=== PATIENT | female | born 1940 | race Caucasian/White ===

== ENCOUNTER 2016-09-07 13:17 | Inpatient (IN) | payer MEDICARE ==
[~2016-09-07 13:17] MED LIST: SODIUM CHLORIDE 0.9% (PF) 10 ML VIAL ONE; niCARdipine 25 MG/10 ML VIAL ONE
[2016-09-07] MEDS ORDERED: methylPREDNISolone SOD SUCCI 125 MG/2 ML VIAL IV STA (13:28)
[2016-09-07] MEDS ORDERED: diphenhydrAMINE 50 MG/ML 1 ML VIAL IVP STA (13:28)
[2016-09-07] MEDS ORDERED: ATORVASTATIN 80 MG TAB PO STA (13:28)
[2016-09-07] MEDS ORDERED: SODIUM CHLORIDE 0.9% 250 ML BAG ONE (13:30)
[2016-09-07] MEDS ORDERED: NOREPINEPHRINE 1 MG/ML 4 ML VIAL IV ONE (13:30)
[2016-09-07 13:34] LABS: CHCM 34.1; HCT 38.5 % (34.0-46.0); HDW 2.28; HGB 13.7 gm/dL (11.4-16.0); MCH 32.6 pg (25.0-35.0); MCHC 35.7 g/dL (31.0-37.0); MCV 91.3 fL (80.0-100.0); RBC 4.21 m/uL (3.80-5.40); RDW 12.4 % (11.5-15.5); WBC 14.6 k/uL (3.8-10.6)
--- NOTE | 2016-09-07 13:34 | ED ---
Arrhythmia/Palpitations HPI - General Chief Complaint: Arrhythmia/Palpitations Stated Complaint: Chest Pain Time Seen by Provider: 09/07/16 13:17 Source: patient, EMS Mode of arrival: EMS Limitations: no limitations - History of Present Illness Initial Comments: This is a 75-year-old female with no prior history of heart disease she is a long-time smoker she does also have a history apparently of retroperitoneal fibrosis who had the onset around 12 noon today of retrosternal chest pain it was 8/10 severity. She states it was severe heaviness tightness. She has some shortness of breath with it. EMS was called and a 12-lead EKG was performed showing ST elevation in leads II, III, and F aVF also on the lateral leads. The patient was brought in [facility] [address] elevation myocardial infarction. Cardiology was notified prior to the patient's arrival I did discuss case with Dr. TIAN Cordon as well as Dr. Whitfield and's service. Patient was initially seen in the emergency department and prepped for the [facility]. Initial twelve-lead was transmitted at 12:53 PM initially EMS call was that 1303 p.m. I did discuss the case with Dr. Cordon [place] [address] Aaron was contacted by cardiology at 1314 and will be performing a cath. Upon arrival a STEMI alert was called and [facility] personnel did respond to. Patient's pain originally was 8/10 severity at times she [facility] emergency department and was about a 5/10. SHe was given aspirin via paramedics she also apparently to gas from prior to this. - Related Data Home Medications Medication Instructions Recorded Confirmed Cholecalciferol [Vitamin D3] 1,000 unit PO DAILY 10/14/15 10/21/15 Citalopram Hydrobromide [CeleXA] 20 mg PO HS 10/14/15 10/21/15 Digoxin [Lanoxin] 125 mcg PO DAILY 10/14/15 10/21/15 Fenofibrate,Micronized 134 mg PO DAILY 10/14/15 10/21/15 [Fenofibrate] L. Rhamnosus GG/Inulin [Culturelle 1 tab PO DAILY 10/14/15 10/21/15 Chewable Tablet] Ascorbic Acid [Vitamin C] 500 mg PO DAILY 10/21/15 10/21/15 Baclofen [Lioresal] 10 mg PO QID 10/21/15 10/21/15 traMADol HCL [Ultram] 50 mg PO BID 10/21/15 10/21/15 Previous Rx's Medication Instructions Recorded Levofloxacin [Levaquin] 250 mg PO DAILY #7 tab 10/23/15 Allergies Allergy/AdvReac Type Severity Reaction Status Date / Time Iodinated Contrast Media - Allergy Itching Verified 09/07/16 13:27 Oral and naproxen Allergy Rash/Hives/Tongue Verified 09/07/16 13:27 Swelling naproxen sodium [From Aleve] Allergy Rash/Hives/Tongue Verified 09/07/16 13:27 Swelling Review of Systems ROS Statement: Those systems with pertinent positive or pertinent negative responses have been documented in the HPI. ROS Other: All systems not noted in ROS Statement are negative. Past Medical History Past Medical History: Hyperlipidemia, Hypertension Additional Past Medical History / Comment(s): C. diff, anxiety, depression, nicotine dependence, tachycardic arrhythmia History of Any Multi-Drug Resistant Organisms: C-DIFF Date of last positivie culture/infection: 2006 MDRO Source:: stool Past Surgical History: Appendectomy, Back Surgery, Breast Surgery, Hysterectomy , Orthopedic Surgery Additional Past Surgical History / Comment(s): retropertoineal fibrosis Past Psychological History: Anxiety, Depression Smoking Status: Current every day smoker Past Alcohol Use History: None Reported Past Drug Use History: None Reported General Exam - General Exam Comments Initial Comments: This is a well-developed well-nourished awake alert oriented 3 female Limitations: no limitations General appearance: alert, anxious Head exam: Present: atraumatic, normocephalic, normal inspection Eye exam: Present: normal appearance, PERRL, EOMI. Absent: scleral icterus, conjunctival injection, periorbital swelling ENT exam: Present: normal exam, mucous membranes moist Neck exam: Present: normal inspection. Absent: tenderness, meningismus, lymphadenopathy Respiratory exam: Present: normal lung sounds bilaterally. Absent: respiratory distress, wheezes, rales, rhonchi, stridor Cardiovascular Exam: Present: regular rate, normal rhythm, normal heart sounds. Absent: systolic murmur, diastolic murmur, rubs, gallop, clicks GI/Abdominal exam: Present: soft, normal bowel sounds. Absent: distended, tenderness, guarding, rebound, rigid Extremities exam: Present: normal inspection, full ROM, normal capillary refill. Absent: tenderness, pedal edema, joint swelling, calf tenderness Back exam: Present: normal inspection Neurological exam: Present: alert, oriented X3, CN II-XII intact Psychiatric exam: Present: normal affect, normal mood Skin exam: Present: warm, dry, intact, normal color. Absent: rash Course Vital Signs 09/07/16 13:19 Temperature 97.1 F L Pulse Rate 77 Respiratory 18 Rate Blood Pressure 168/65 O2 Sat by Pulse 96 Oximetry EKG Findings - EKG Results: EKG: interpreted by ERMD, sinus rhythm (EKG shows a sinus bradycardia with ST elevations in leads II, III, and F aVF reciprocal aVL depression was also elevation in V5 V6. The rate was 57 appear of 01 40 QRS 90 QT/QTC of 412/401.) Medical Decision Making - Medical Decision Making The patient was prepped and taken to the [facility]. I did again discuss case with Dr. Whitfield. Dr. Clark from cardiology to come the emergency department see the patient. - Radiology Data Radiology results: report reviewed (Imaging shows no definite acute findings.), image reviewed Critical Care Time Critical Care Time: Yes Critical Care Time: 34 minutes of critical care time which includes the initial monitoring of the EMS run and discussed with paramedics review of any charting that was available. Discussion with cardiology discussion with the admitting service discussion with The personnel. History physical and reevaluation the patient response to therapy while in the department. Documentation of the above. Disposition Clinical Impression: Acute ST elevation myocardial infarction Disposition: ADMITTED IP TO THIS HOSP Condition: Serious Referrals: Rosario Loza MD [Primary Care Provider] - 1-2 days
[2016-09-07 13:48] LABS: ALT 24 U/L (9-52); AST 20 U/L (14-36); Alkaline Phosphatase 46 U/L (38-126); Anion Gap 10 mmol/L; Blood Urea Nitrogen 20 mg/dL (7-17); Calcium 9.7 mg/dL (8.4-10.2); Carbon Dioxide 20 mmol/L (22-30); Chloride 111 mmol/L (98-107); Glucose 112 mg/dL (74-99); Non-African American GFR(MDRD) >60 (>60 ml/min/1.73 sqM); Potassium 4.1 mmol/L (3.5-5.1); Sodium 141 mmol/L (137-145); Total Bilirubin 0.6 mg/dL (0.2-1.3); Total Protein 6.6 g/dL (6.3-8.2)
[2016-09-07 13:55] LABS: INR 1.1 (<1.1); Partial Thromboplastin Time 21.9 sec (22.0-30.0); Prothrombin Time 11.3 sec (9.0-12.0)
--- NOTE | 2016-09-07 14:03 | XR ---
EXAMINATION TYPE: XR chest 1V portable DATE OF EXAM: 09/07/2016 CLINICAL HISTORY: Chest pain per order TECHNIQUE: Single AP portable upright view of the chest is obtained. COMPARISON: Chest x-ray October 22, 2015 and CTA chest October 21, 2015. FINDINGS: Surgical changes in the cervical spine are visualized. Cardiac silhouette size is [place] its of normal. There is no suspicious focal airspace opacity, pleural effusion, or pneumothorax seen bilaterally. There is slightly atherosclerotic and ectatic aorta. Chronic parenchymal changes are pre sent. Osseous structures are demineralized. IMPRESSION: Chronic changes without acute pulmonary process identified.
[2016-09-07 14:20] LABS: Creatine Kinase MB 1.2 ng/mL (0.0-2.4)
[2016-09-07] MEDS ORDERED: CLOPIDOGREL 75 MG TAB ONE (14:20)
[2016-09-07 14:25] LABS: Troponin I 0.098 ng/mL (0.000-0.034)
[2016-09-07] MEDS ORDERED: RX INFO: IV CONTRAST WAS GIVEN 1 EACH MISC MISCELLANE PRN (14:32)
[2016-09-07] MEDS ORDERED: MAG HYDROX/AL HYDROX/SIMETH 30 ML CUP PO PRN (14:32)
[2016-09-07] MEDS ORDERED: ATROPINE SULFATE 0.1 MG/ML 10ML SYRINGE IV PRN (14:32)
[2016-09-07] MEDS ORDERED: diphenhydrAMINE 50 MG/ML 1 ML VIAL ONE (14:34)
[2016-09-07] MEDS ORDERED: SODIUM CHLORIDE 0.9% 1,000 ML IV SCH (14:45)
--- NOTE | 2016-09-07 14:57 | P.CRDCN ---
History of Present Illness Consult date: 09/07/16 Requesting physician: Rosario Loza Reason for Consult (text): Inferior lateral STEMI Chief complaint: Chest pain History of present illness: This is a pleasant 75-year-old female with history of hyperlipidemia, nicotine dependence, who presented to the emergency room with symptoms of chest discomfort. EKG revealed a normal sinus rhythm with inferior lateral ST elevation. Subsequent EKG performed in the emergency room again showed normal sinus rhythm with significant ST elevation in the inferior lateral leads. The patient was given aspirin on arrival. She continued to have pain at about an 8 , one sublingual nitroglycerin was given and patient became hypotensive. Patient was seen and examined, educated regarding the importance of proceeding with emergent cardiac catheterization. The risks and the benefits were explained to the patient in detail and she was willing to proceed. Patient was given a stat Lipitor, she was also given Solu-Medrol and one dose of Benadryl because of ALLERGY to IVP dye. She was taken directly to the cardiac catheterization lab. Past Medical History Past Medical History: Hyperlipidemia, Hypertension Additional Past Medical History / Comment(s): C. diff, anxiety, depression, nicotine dependence, tachycardic arrhythmia History of Any Multi-Drug Resistant Organisms: C-DIFF Date of last positivie culture/infection: 2006 MDRO Source:: stool Past Surgical History: Appendectomy, Back Surgery, Breast Surgery, Hysterectomy , Orthopedic Surgery Additional Past Surgical History / Comment(s): retropertoineal fibrosis Past Psychological History: Anxiety, Depression Smoking Status: Current every day smoker Past Alcohol Use History: None Reported Past Drug Use History: None Reported Medications and Allergies Home Medications Medication Instructions Recorded Confirmed Type Cholecalciferol [Vitamin D3] 1,000 unit PO DAILY 10/14/15 09/07/16 History Citalopram Hydrobromide [CeleXA] 20 mg PO HS 10/14/15 09/07/16 History Ascorbic Acid [Vitamin C] 500 mg PO DAILY 10/21/15 09/07/16 History traMADol HCL [Ultram] 50 mg PO BID 10/21/15 09/07/16 History Digoxin [Lanoxin] 125 mcg PO DAILY 09/07/16 09/07/16 History Fenofibric Acid (Choline) 135 mg PO DAILY 09/07/16 09/07/16 History [Fenofibric Acid] L.acidoph,Paracasei, B.lactis 1 cap PO DAILY 09/07/16 09/07/16 History [Probiotic] tiZANidine HCL [Zanaflex] 2 mg PO Q6H PRN 09/07/16 09/07/16 History Allergies Allergy/AdvReac Type Severity Reaction Status Date / Time Iodinated Contrast Media - Allergy Itching Verified 09/07/16 14:23 Oral and naproxen Allergy Rash/Hives/Tongue Verified 09/07/16 14:23 Swelling naproxen sodium [From Aleve] Allergy Rash/Hives/Tongue Verified 09/07/16 14:23 Swelling Physical Exam Vitals: Vital Signs Temp Pulse Resp BP Pulse Ox 09/07/16 13:19 97.1 F L 77 18 168/65 96 Intake and Output 09/06/16 09/07/16 09/07/16 22:59 06:59 14:59 Other: Weight 57.153 kg Patient Weight 09/08/16 06:59 Weight 57.153 kg PHYSICAL EXAMINATION: HEENT: Head is atraumatic, normocephalic. Pupils equal, round. Neck is supple. There is no elevated jugular venous pressure. HEART EXAMINATION: Heart S1, S2 normal. No murmur or gallop heard. CHEST EXAMINATION: Lungs are clear to auscultation and precussion. ABDOMEN: Soft, nontender. Bowel sounds are heard. No organomegaly noted. EXTREMITIES: 2+ peripheral pulses with no evidence of peripheral edema and no calf tenderness noted. NEUROLOGIC patient is awake, alert and oriented -3. . Results 09/07/16 13:23 09/07/16 13:23 Cardiac Enzymes 09/07/16 09/07/16 Range/Units 13:23 13: AST 20 (14-36) U/L CK-MB (CK-2) 1.2 (0.0-2.4) ng/mL Troponin I 0.098 H* (0.000-0.034) ng/mL Coagulation 09/07/16 Range/Units 13: PT 11.3 (9.0-12.0) sec APTT 21.9 L (22.0-30.0) sec CBC 09/07/16 Range/Units 13: WBC 14.6 H (3.8-10.6) k/uL RBC 4.21 (3.80-5.40) m/uL Hgb 13.7 (11.4-16.0) gm/dL Hct 38.5 (34.0-46.0) % Plt Count 318 (150-450) k/uL Comprehensive Metabolic Panel 09/07/16 Range/Units 13:23 Sodium 141 (137-145) mmol/L Potassium 4.1 (3.5-5.1) mmol/L Chloride 111 H (98-107) mmol/L Carbon Dioxide 20 L (22-30) mmol/L BUN 20 H (7-17) mg/dL Creatinine 0.80 (0.52-1.04) mg/dL Glucose 112 H (74-99) mg/dL Calcium 9.7 (8.4-10.2) mg/dL AST 20 (14-36) U/L ALT 24 (9-52) U/L Alkaline Phosphatase 46 (38-126) U/L Total Protein 6.6 (6.3-8.2) g/dL Albumin 4.0 (3.5-5.0) g/dL Current Medications Generic Name Dose Route Start Last Admin Trade Name Freq PRN Reason Stop Dose Admin Al Hydroxide/Mg Hydroxide 30 ml 09/07/16 14:32 Maalox PO Q4HR PRN Heartburn Ascorbic Acid 500 mg 09/08/16 09:00 Vitamin C PO DAILY [facility] Aspirin 325 mg 09/08/16 09:00 Aspirin PO DAILY [facility] Atropine Sulfate 0.5 mg 09/07/16 14:32 Atropine IV ONCE PRN Symptomatic Bradycardia Cholecalciferol 1,000 unit 09/08/16 09:00 Vitamin D3 PO DAILY [facility] Citalopram Hydrobromide 20 mg 09/07/16 21:00 Celexa PO HS [facility] Clopidogrel Bisulfate 75 mg 09/08/16 14:33 Plavix PO DAILY [facility] Digoxin 125 mcg 09/08/16 09:00 Lanoxin PO DAILY [facility] Fenofibrate 160 mg 09/08/16 09:00 Lofibra PO DAILY [facility] Sodium Chloride 1,000 mls @ 100 mls/hr 09/07/16 14:45 Saline 0.9% IV 09/07/16 22:46 .Q10H RIGOBERTO Lactobacillus Acidoph/Bulgaricus 1 each 09/08/16 09:00 Lactinex PO DAILY [facility] Miscellaneous Information 1 each 09/07/16 14:32 Rx Info: Iv Contrast Was Given MISCELLANE 09/09/16 14:32 DAILY PRN Per Protocol Nitroglycerin 0.4 mg 09/07/16 14:32 Nitrostat SUBLINGUAL Q5M PRN Chest Pain Tizanidine HCl 2 mg 09/07/16 14:31 Zanaflex PO Q6H PRN MUSCLE SPASMS Tramadol HCl 50 mg 09/07/16 21:00 Ultram PO BID RIGOBERTO Zolpidem Tartrate 5 mg 09/07/16 14:32 Ambien PO HS PRN Insomnia Intake and Output 09/06/16 09/07/16 09/07/16 22:59 06:59 14:59 Other: Weight 57.153 kg Patient Weight 09/08/16 06:59 Weight 57.153 kg 09/07/16 13:23 09/07/16 13:23 EKG Interpretations (text) EKG shows normal sinus rhythm with inferior lateral ST elevation Assessment and Plan Plan: Assessment and plan #[address] elevation myocardial infarction #2 hyperlipidemia #3 nicotine dependence Plan Patient was advised to be taken emergently to the cardiac catheterization lab, the risks and the benefits were explained to the patient in detail. Further recommendations will be based on these findings and the patient's clinical course. DNP note has been reviewed, I agree with a documented findings and plan of care. Patient was seen and examined.
[2016-09-07 15:01] LABS: Glucose,Whole Blood 127 mg/dL (75-99)
[2016-09-07] MEDS ORDERED: Magnesium Replacement Protocol 1 EACH MISC MISCELLANE PRN (18:54)
[2016-09-07] MEDS ORDERED: HYDROmorphone 1 MG/ML 1 ML SYRINGE IVP PRN (18:55)
[2016-09-07] MEDS: MAGNESIUM SULFATE-D5W PMX 1 GM in DEXTROSE/WATER 1 100ML.BAG IVPB SCH ×3 (19:32→21:42)
[2016-09-07] MEDS: NICOTINE 21MG/24HR PATCH TRANSDERM SCH (20:32)
[2016-09-07] MEDS: CITALOPRAM HYDROBROMIDE 20 MG TAB PO SCH (21:45)
[2016-09-07] MEDS: traMADol 50 MG TAB PO SCH (21:45)
[2016-09-07] MEDS: ZOLPIDEM 5 MG TAB PO PRN (21:45)
[2016-09-08 04:55] LABS: Basophils % (A) 0 %; CH 30.8; CHCM 33.4; Eosinophils % (A) 0 %; HDW 2.25; HGB 13.3 gm/dL (11.4-16.0); Luc # (Auto) 0.17; Luc % (Auto) 1; Lymphocytes # (A) 1.7 k/uL (1.0-4.8); Lymphocytes % (A) 10 %; MCH 32.6 pg (25.0-35.0); MCHC 35.1 g/dL (31.0-37.0); MCV 92.8 fL (80.0-100.0); Monocytes # (A) 1.2 k/uL (0-1.0); Monocytes % (A) 7 %; Neutrophils # (A) 13.9 k/uL (1.3-7.7); Neutrophils % (A) 81 %; RBC 4.09 m/uL (3.80-5.40); RDW 12.4 % (11.5-15.5); WBC 17.1 k/uL (3.8-10.6); WBC (Perox) 17.04
[2016-09-08 05:05] LABS: Anion Gap 9 mmol/L; Blood Urea Nitrogen 15 mg/dL (7-17); Calcium 9.2 mg/dL (8.4-10.2); Carbon Dioxide 20 mmol/L (22-30); Chloride 111 mmol/L (98-107); Glucose 121 mg/dL (74-99); Magnesium 2.1 mg/dL (1.6-2.3); Non-African American GFR(MDRD) >60 (>60 ml/min/1.73 sqM); Phosphorous 2.9 mg/dL (2.5-4.5); Potassium 4.8 mmol/L (3.5-5.1); Sodium 140 mmol/L (137-145)
[2016-09-08] MEDS ORDERED: DIGOXIN 125 MCG TAB PO SCH (09:00)
[2016-09-08] MEDS ORDERED: FENOFIBRATE 160 MG TAB PO SCH (09:00)
[2016-09-08] MEDS: SODIUM CHLORIDE 0.9% 1,000 ML IV SCH ×2 (10:05→23:10)
[2016-09-08] MEDS: METOPROLOL TARTRATE 12.5 MG TAB PO SCH (10:09)
[2016-09-08] MEDS: ASPIRIN 325 MG TAB PO SCH (10:10)
[2016-09-08] MEDS: ASCORBIC ACID 500 MG TAB PO SCH (10:10)
[2016-09-08] MEDS: CLOPIDOGREL 75 MG TAB PO SCH (10:11)
[2016-09-08] MEDS: NICOTINE 21MG/24HR PATCH TRANSDERM SCH (10:11)
[2016-09-08] MEDS: CHOLECALCIFEROL 1,000 UNIT TAB PO SCH (10:13)
[2016-09-08] MEDS: LACTOBACILLUS ACIDOPH & BULGAR 1 EACH PACKET PO SCH (10:13)
[2016-09-08] MEDS: traMADol 50 MG TAB PO SCH ×2 (10:25→19:55)
--- NOTE | 2016-09-08 12:23 | P.HPIM ---
History of Present Illness H&P Date: 09/08/16 Chief Complaint: Chest pain This is a 75-year-old female, patient of Dr. Sykes. She has a known past medical history of hyperlipidemia, hypertension, nicotine dependence, anxiety and depression. Patient presents to the emergency room with complaints of chest pain in the epigastric area. She reports it is a heartburn-like sensation. Symptoms came on suddenly yesterday afternoon. EMS was called and patient was brought into the emergency room. Initial EKG had revealed a normal sinus rhythm with inferior lateral ST elevation in the imbalance. EKG in the emergency room also showing ST elevation in his inferior lateral leads. Patient was given an aspirin. Cardiology was consulted and she was taken to the heart [facility]. Patient had stent to the RCA. Started on aspirin and Plavix. Also was placed on Lipitor. Patient does have a IV dye ALLERGY. Since she did receive a dose of Solu-Medrol and Benadryl due to the ALLERGY. Patient's is in the ICU. She is stable. She did have episode of chest pain after stent placement. A repeat EKG completed and cardiology reviewed. There is no further ST elevation. Patient is now chest pain-free. She denies any nausea or vomiting. Denies any bowel movement changes. Denies any urinary symptoms. Denies any fevers chills or sweats. She does admit when she had the chest pain she was also having some shortness of breath and sweating. Review of Systems Please refer to HPI otherwise unremarkable Past Medical History Past Medical History: Hyperlipidemia, Hypertension, Osteoarthritis (OA) Additional Past Medical History / Comment(s): 09-07-16 stemi. other pmh includes:C. diff in 2006, anxiety, depression, nicotine dependence, bronchitis , 1 episode of gout in past.uti, spinal stenosis. pt has thin fragile skin use paper tape. hx retroperitoneal fibrosis(had sx), previous charting stated " tachy arrythmia" History of Any Multi-Drug Resistant Organisms: MRSA Date of last positivie culture/infection: "approx 10 years ago in [place]"(per pt) MDRO Source:: unk Past Surgical History: Appendectomy, Back Surgery, Breast Surgery, Hysterectomy , Orthopedic Surgery Additional Past Surgical History / Comment(s): sx for retropertoineal fibrosis, exploratory lap/lysis of adhesions, bx of uterine mass-neg, eyelid lift, cystoscopy, rt ureter reconstruction w/ stent that since has been removed. pt stated"they took a piece of bowel to use in the reconstruction sx for ureter", neck fusion, lt breast sx removed fibroid,09-07-16 heart cath w/ stent to rca Past Anesthesia/Blood Transfusion Reactions: No Reported Reaction Additional Past Anesthesia/Blood Transfusion Reaction / Comment(s): blood transfusion in past-no reaction. Smoking Status: Current every day smoker - Past Family History Mother Family Medical History: CVA/TIA, Diabetes Mellitus Father Family Medical History: COPD Additional Family Medical History / Comment(s): emphysema Medications and Allergies Home Medications Medication Instructions Recorded Confirmed Type Cholecalciferol [Vitamin D3] 1,000 unit PO DAILY 10/14/15 09/07/16 History Citalopram Hydrobromide [CeleXA] 20 mg PO HS 10/14/15 09/07/16 History Ascorbic Acid [Vitamin C] 500 mg PO DAILY 10/21/15 09/07/16 History traMADol HCL [Ultram] 50 mg PO BID 10/21/15 09/07/16 History Digoxin [Lanoxin] 125 mcg PO DAILY 09/07/16 09/07/16 History Fenofibric Acid (Choline) 135 mg PO DAILY 09/07/16 09/07/16 History [Fenofibric Acid] L.acidoph,Paracasei, B.lactis 1 cap PO DAILY 09/07/16 09/07/16 History [Probiotic] tiZANidine HCL [Zanaflex] 2 mg PO Q6H PRN 09/07/16 09/07/16 History Allergies Allergy/AdvReac Type Severity Reaction Status Date / Time Iodinated Contrast Media - Allergy Itching Verified 09/07/16 14:23 Oral and naproxen Allergy Rash/Hives/Tongue Verified 09/07/16 14:23 Swelling naproxen sodium [From Aleve] Allergy Rash/Hives/Tongue Verified 09/07/16 14:23 Swelling Physical Exam Vitals: Vital Signs Temp Pulse Resp BP Pulse Ox 09/08/16 09:00 93 17 92/46 95 09/08/16 08:00 98.1 F 70 14 95/49 94 L 09/08/16 07:00 65 14 86/44 93 L 09/08/16 06:00 63 16 91/54 94 L 09/08/16 05:00 62 13 92/49 96 09/08/16 04:00 97.4 F L 64 18 99/52 93 L 09/08/16 03:00 64 14 99/52 91 L 09/08/16 02:00 62 12 96/52 92 L 09/08/16 01:00 97.8 F 63 16 96/52 92 L 09/08/16 00:00 69 16 98/55 91 L 09/07/16 23:00 69 13 93/46 93 L 09/07/16 22:00 70 14 95/51 94 L 09/07/16 21:00 68 14 98/53 96 09/07/16 20:30 72 20 98/53 95 09/07/16 20:15 69 22 91/50 96 09/07/16 20:00 74 19 104/55 96 09/07/16 19:45 98.1 F 68 20 104/53 95 09/07/16 19:30 65 14 92/61 97 09/07/16 19:15 68 19 103/53 95 09/07/16 19:00 68 17 105/53 96 09/07/16 18:45 67 18 89/56 96 09/07/16 18:30 66 19 97/53 96 09/07/16 18:15 68 16 93/58 98 09/07/16 18:00 75 22 109/54 97 09/07/16 17:45 56 L 15 108/54 98 09/07/16 17:30 65 17 101/48 98 09/07/16 17:15 58 L 19 112/60 98 09/07/16 17:00 55 L 20 93/56 99 09/07/16 16:45 71 16 92/46 97 09/07/16 16:30 73 18 94/53 98 09/07/16 16:15 65 16 99/56 97 09/07/16 16:00 73 22 91/51 98 09/07/16 15:45 69 9 L 86/57 97 09/07/16 15:30 64 13 94/53 98 09/07/16 15:15 67 16 100/61 98 09/07/16 15:10 97.6 F 67 18 109/59 98 09/07/16 15:00 82 29 H 09/07/16 13:19 97.1 F L 77 18 168/65 96 Intake and Output 09/07/16 09/08/16 09/08/16 22:59 06:59 14:59 Intake Total 1650 220 180 Output Total 500 Balance 1150 220 180 Intake: IV 1350 100 0.9 NACL 750 Magnesium Sulfate-D5w Pmx 300 1 gm In Dextrose/Water 1 100ml.bag @ 100 mls/hr IVPB Q1H RIGOBERTO Rx#: [id number] Sodium Chloride 0.9% 1, 300 100 000 ml @ 100 mls/hr IV . Q10H RIGOBERTO Rx#:[id number] Oral 300 120 Tube Feeding 180 Output: Urine 500 Other: Voiding Method Toilet Toilet Toilet # Voids 1 0 1 Weight 55 kg Head normocephalic Neck supple Lungs clear to auscultation bilaterally no wheezing or crackles Heart regular rate and rhythm S1-S2, no rub or gallop Abdomen is soft nontender nondistended positive bowel sounds no hepatosplenomegaly Extremities no edema Neuro alert and orientated to 3 Results CBC & Chem 7: 09/08/16 04:18 09/08/16 04:18 Labs: Abnormal Lab Results - Last 24 Hours (Table) 09/07/16 09/07/16 09/07/16 Range/Units 13:23 13:23 13:23 WBC 14.6 H (3.8-10.6) k/uL Neutrophils # (1.3-7.7) k/uL Monocytes # (0-1.0) k/uL APTT (22.0-30.0) sec Chloride 111 H (98-107) mmol/L Carbon Dioxide 20 L (22-30) mmol/L BUN 20 H (7-17) mg/dL Glucose 112 H (74-99) mg/dL POC Glucose (mg/dL) (75-99) mg/dL Magnesium (1.6-2.3) mg/dL Troponin I 0.098 H* (0.000-0.034) ng/mL 09/07/16 09/07/16 09/07/16 Range/Units 13:23 13:23 14:59 WBC (3.8-10.6) k/uL Neutrophils # (1.3-7.7) k/uL Monocytes # (0-1.0) k/uL APTT 21.9 L (22.0-30.0) sec Chloride (98-107) mmol/L Carbon Dioxide (22-30) mmol/L BUN (7-17) mg/dL Glucose (74-99) mg/dL POC Glucose (mg/dL) 127 H (75-99) mg/dL Magnesium 1.4 L (1.6-2.3) mg/dL Troponin I (0.000-0.034) ng/mL 09/08/16 09/08/16 Range/Units 04:18 04:18 WBC 17.1 H (3.8-10.6) k/uL Neutrophils # 13.9 H (1.3-7.7) k/uL Monocytes # 1.2 H (0-1.0) k/uL APTT (22.0-30.0) sec Chloride 111 H (98-107) mmol/L Carbon Dioxide 20 L (22-30) mmol/L BUN (7-17) mg/dL Glucose 121 H (74-99) mg/dL POC Glucose (mg/dL) (75-99) mg/dL Magnesium (1.6-2.3) mg/dL Troponin I (0.000-0.034) ng/mL Thrombosis Risk Factor Assmnt - Choose All That Apply Any of the Below Risk Factors Present?: Yes Each Factor Represents 1 point: Acute [place] Other Risk Factors: Yes Each Risk Factor Represents 2 Points: Age 61-74 years Other congenital or acquired thrombophilia - If yes, enter type in comment: No Thrombosis Risk Factor Assessment Total Risk Factor Score: 3 Thrombosis Risk Factor Assessment Level: Moderate Risk Assessment and Plan Plan: 1. Acute inferior lateral ST elevation myocardial infarction present on admission. Patient underwent stat heart catheterization with stent placement to the RCA. She is currently on aspirin and Plavix. She's also been started on Lipitor and metoprolol 2. Nicotine dependence: Patient has been started on nicotine patch. She's been counseled on quitting smoking for greater than minutes 3. Leukocytosis likely steroid related. Repeat labs in a.m. 4. Hypomagnesemia improved with supplement 5. Hyperlipidemia statin 6. Generalized anxiety disorder continue Celexa DVT prophylaxis subcu heparin Time with Patient: Greater than 30 (Greater than 50% of the total time spent in counseling and coordination of care.I performed an examination of the patient and discussed their management with the physician Scout Sniper. I have reviewed the Physician Scout Sniper's notes and agree with the documented findings and plan of care)
--- NOTE | 2016-09-08 16:11 | PN ---
This lady suffered from acute NV yesterday, was seen by Dr. Jacobs and underwent stenting of the RCA. She also has moderate disease in the LAD, has a right ventricle infarct, ( ) hypotension but she is doing better now. Levophed has been weaned off. Plan is to continue current medications. I will hydrate her for another 24 hours or so, increase activity and move her to telemetry unit. She is progressing well. I discussed my thoughts in detail with the patient. We will continue her current medical regimen. Echocardiogram will be performed today. She will be moved to telemetry later on this evening. [place]
[2016-09-08] MEDS ORDERED: PNEUMOCOCCAL VACC-PNEUMOVAX 23 25 MCG/0.5 ML VIAL IM ONE (16:55)
[2016-09-08] MEDS: CITALOPRAM HYDROBROMIDE 20 MG TAB PO SCH (19:53)
[2016-09-08] MEDS: HEPARIN SODIUM,PORCINE 5,000 UNIT/ML 1 ML VIAL SQ SCH (19:53)
[2016-09-08] MEDS: ATORVASTATIN 80 MG TAB PO SCH (19:53)
[2016-09-08] MEDS ORDERED: LORATADINE 10 MG TAB PO PRN (20:37)
[2016-09-08] MEDS: ZOLPIDEM 5 MG TAB PO PRN (21:41)
--- NOTE | 2016-09-08 22:36 | ECHOF ---
Referral Reason:stemi MEASUREMENTS -------- HEIGHT: 157.5 cm WEIGHT: 57.2 kg BP: 101/48 RVIDd: 2.7 cm (< 3.3) IVSd: 1.1 cm (0.6 - 1.1) LVIDd: 3.6 cm (3.9 - 5.3) LVPWd: 1.2 cm (0.6 - 1.1) IVSs: 1.8 cm LVIDs: 1.7 cm LVPWs: 1.5 cm LAESV Index (A-L): 18.72 ml/m Ao Diam: 3.2 cm (2.0 - 3.7) AV Cusp: 1.7 cm (1.5 - 2.6) LA Diam: 2.8 cm (2.7 - 3.8) MV EXCURSION: 16.659 mm (> 18.000) MV EF SLOPE: 75 mm/s (70 - 150) EPSS: 0.9 cm MV E Albert: 0.57 m/s MV DecT: 284 ms MV A Albert: 1.05 m/s MV E/A Ratio: 0.54 RAP: 5.00 mmHg RVSP: 30.00 mmHg FINDINGS -------- Sinus rhythm. This was a technically adequate study. There is borderline concentric left ventricular hypertrophy. Overall left ventricular systolic function is mildly impaired with, an EF between 45 - 50 %. Basal inferior LV wall motion is hypokinetic. Mid inferior LV wall motion is hypokinetic. Apical inferior LV wall motion is hypokinetic. The right ventricle is normal in size and function. Normal LA size by volume 22+/-6 ml/m2. The right atrium is normal in size. Aortic valve is trileaflet and is mildly thickened. There is no evidence of aortic regurgitation. There is no evidence of aortic stenosis. The mitral valve is normal. Mild mitral regurgitation is present. Mild tricuspid regurgitation present. There is no evidence of pulmonary hypertension. The right ventricular systolic pressure, as measured by Doppler, is 30.00mmHg. There is no pulmonic regurgitation present. The aortic root size is normal. Normal inferior vena cava with normal inspiratory collapse consistent with estimated right atrial pressure of 5 mmHg. There is no pericardial effusion. CONCLUSIONS -------- 1. Sinus rhythm. 2. Mild mitral regurgitation is present. 3. There is no evidence of pulmonary hypertension. 4. There is no pulmonic regurgitation present. 5. There is no pericardial effusion. 6. This was a technically adequate study. 7. There is borderline concentric left ventricular hypertrophy. 8. Overall left ventricular systolic function is mildly impaired with, an EF between 45 - 50 %. 9. Basal inferior LV wall motion is hypokinetic. 10. Mid inferior LV wall motion is hypokinetic. 11. Apical inferior LV wall motion is hypokinetic. 12. Normal LA size by volume 22+/-6 ml/m2. 13. Aortic valve is trileaflet and is mildly thickened. FORMS BUILDER: Donta Billings RDCS
[2016-09-09] MEDS: NITROGLYCERIN SL TABS 0.4 MG TAB SUBLINGUAL PRN ×2 (03:50→03:55)
[2016-09-09 04:21] LABS: Amorphous Sediment,Urine Rare /hpf; Appearance,Urine Clear (Clear); Bacteria,Urine Occasional /hpf; Bilirubin,Urine Negative (Negative); Glucose,Urine (UA) Negative (Negative); Ketones,Urine Negative (Negative); Leukocyte Esterase,Urine Trace (Negative); Mucus,Urine Rare /hpf; Nitrite,Urine Negative (Negative); PH, Urine 6.5 (5.0-8.0); Particle Count 10283; Protein,Urine Negative (Negative); RBC,Urine 3 /hpf (0-5); Specific Gravity,Urine 1.006 (1.001-1.035); Squamous Epithelial Cell,Urine 1 /hpf (0-4); UA Billing (MACRO vs. MICRO) MICRO; Urobilinogen,Urine <2.0 mg/dL (<2.0); WBC,Urine 7 /hpf (0-5)
[2016-09-09 06:24] LABS: Basophils % (A) 0 %; CH 30.7; CHCM 32.4; Eosinophils # (A) 0.1 k/uL (0-0.7); Eosinophils % (A) 1 %; HCT 36.8 % (34.0-46.0); HDW 2.24; HGB 12.3 gm/dL (11.4-16.0); Luc # (Auto) 0.19; Luc % (Auto) 1; Lymphocytes # (A) 2.8 k/uL (1.0-4.8); Lymphocytes % (A) 20 %; MCH 31.8 pg (25.0-35.0); MCHC 33.5 g/dL (31.0-37.0); MCV 95.2 fL (80.0-100.0); Mean Platelet Volume 8.2; Monocytes % (A) 7 %; Neutrophils # (A) 9.9 k/uL (1.3-7.7); Neutrophils % (A) 70 %; RBC 3.86 m/uL (3.80-5.40); RDW 12.5 % (11.5-15.5); WBC 14.1 k/uL (3.8-10.6); WBC (Perox) 14.27
[2016-09-09 06:39] LABS: ALT 30 U/L (9-52); AST 46 U/L (14-36); Alkaline Phosphatase 39 U/L (38-126); Anion Gap 7 mmol/L; Blood Urea Nitrogen 18 mg/dL (7-17); Calcium 8.7 mg/dL (8.4-10.2); Carbon Dioxide 22 mmol/L (22-30); Chloride 114 mmol/L (98-107); Glucose 88 mg/dL (74-99); Non-African American GFR(MDRD) >60 (>60 ml/min/1.73 sqM); Potassium 4.7 mmol/L (3.5-5.1); Sodium 143 mmol/L (137-145); Total Bilirubin 0.4 mg/dL (0.2-1.3); Total Protein 5.5 g/dL (6.3-8.2)
[2016-09-09] MEDS: CHOLECALCIFEROL 1,000 UNIT TAB PO SCH (08:45)
[2016-09-09] MEDS: CLOPIDOGREL 75 MG TAB PO SCH (08:45)
[2016-09-09] MEDS: METOPROLOL TARTRATE 12.5 MG TAB PO SCH (08:45)
[2016-09-09] MEDS: ASCORBIC ACID 500 MG TAB PO SCH (08:45)
[2016-09-09] MEDS: ASPIRIN 325 MG TAB PO SCH (08:45)
[2016-09-09] MEDS: HEPARIN SODIUM,PORCINE 5,000 UNIT/ML 1 ML VIAL SQ SCH ×2 (08:46→19:57)
[2016-09-09] MEDS: NICOTINE 21MG/24HR PATCH TRANSDERM SCH (08:46)
[2016-09-09] MEDS: LACTOBACILLUS ACIDOPH & BULGAR 1 EACH PACKET PO SCH (08:47)
[2016-09-09] MEDS: traMADol 50 MG TAB PO SCH ×2 (08:52→22:09)
--- NOTE | 2016-09-09 11:45 | P.PN ---
Subjective This is a 75-year-old female, patient of Dr. Sykes. She has a known past medical history of hyperlipidemia, hypertension, nicotine dependence, anxiety and depression. Patient presents to the emergency room with complaints of chest pain in the epigastric area. She reports it is a heartburn-like sensation. Symptoms came on suddenly yesterday afternoon. EMS was called and patient was brought into the emergency room. Initial EKG had revealed a normal sinus rhythm with inferior lateral ST elevation in the imbalance. EKG in the emergency room also showing ST elevation in his inferior lateral leads. Patient was given an aspirin. Cardiology was consulted and she was taken to the heart cath lab nurse. Patient had stent to the RCA. Started on aspirin and Plavix. Also was placed on Lipitor. Patient does have a IV dye ALLERGY. Since she did receive a dose of Solu-Medrol and Benadryl due to the ALLERGY. Patient's is in the ICU. She is stable. She did have episode of chest pain after stent placement. A repeat EKG completed and cardiology reviewed. There is no further ST elevation. Patient is now chest pain-free. She denies any nausea or vomiting. Denies any bowel movement changes. Denies any urinary symptoms. Denies any fevers chills or sweats. She does admit when she had the chest pain she was also having some shortness of breath and sweating. On 09/09/2016 patient laying in bed comfortably, she denies any chest pain or shortness of breath, she is ambulating without difficulty, she is tolerating her diet well. Objective - Vital Signs Vital signs: Vital Signs Temp 97.6 F 09/09/16 08:00 Pulse 60 09/09/16 11:29 Resp 16 09/09/16 11:29 BP 115/61 09/09/16 11:29 Pulse Ox 95 09/09/16 08:00 Intake & Output 09/08/16 09/09/16 09/09/16 18:59 06:59 18:59 Intake Total 1016 525 180 Output Total 750 400 Balance 266 125 180 Weight 55 kg Intake: Intake, IV Titration 600 525 Amount Sodium Chloride 0.9% 1, 600 525 000 ml @ 75 mls/hr IV . [id number] RIGOBERTO Rx#:[id number] Oral 236 180 Tube Feeding 180 Output: Urine 750 400 Other: Voiding Method Toilet Toilet # Voids 1 0 - Exam In general patient is alert and oriented 3 in no apparent distress HEENT head normocephalic and atraumatic Neck is supple no JVD no goiter no lymphadenopathy Chest exam reveals a few scattered crackles no wheezing Cardiac exam reveals regular heart sounds S1 and S2 no gallops no murmurs Abdomen is soft nontender no organomegaly with normal bowel sounds Extremity exam reveals no edema no cyanosis or clubbing - Labs CBC & Chem 7: 09/09/16 05:48 09/09/16 05:48 Labs: Abnormal Lab Results - Last 24 Hours (Table) 09/08/16 09/09/16 09/09/16 Range/Units 04:18 04:05 05:48 WBC 14.1 H (3.8-10.6) k/uL Neutrophils # 9.9 H (1.3-7.7) k/uL Chloride (98-107) mmol/L BUN (7-17) mg/dL AST (14-36) U/L Troponin I 9.640 H* (0.000-0.034) ng/mL Total Protein (6.3-8.2) g/dL Albumin (3.5-5.0) g/dL Ur Leukocyte Esterase Trace H (Negative) Urine WBC 7 H (0-5) /hpf Amorphous Sediment Rare H (None) /hpf Urine Bacteria Occasional H (None) /hpf Urine Mucus Rare H (None) /hpf 09/09/16 Range/Units 05:48 WBC (3.8-10.6) k/uL Neutrophils # (1.3-7.7) k/uL Chloride 114 H (98-107) mmol/L BUN 18 H (7-17) mg/dL AST 46 H (14-36) U/L Troponin I (0.000-0.034) ng/mL Total Protein 5.5 L (6.3-8.2) g/dL Albumin 3.2 L (3.5-5.0) g/dL Ur Leukocyte Esterase (Negative) Urine WBC (0-5) /hpf Amorphous Sediment (None) /hpf Urine Bacteria (None) /hpf Urine Mucus (None) /hpf Assessment and Plan Plan: 1. Acute inferior lateral ST elevation myocardial infarction present on admission. Patient underwent stat heart catheterization with stent placement to the RCA. She is currently on aspirin and Plavix. She's also been started on Lipitor and metoprolol 2. Nicotine dependence: Patient has been started on nicotine patch. She's been counseled on quitting smoking for greater than minutes 3. Leukocytosis likely steroid related. Repeat labs in a.m. 4. Hypomagnesemia improved with supplement 5. Hyperlipidemia statin 6. Generalized anxiety disorder continue Celexa Case discussed with Dr TIAN Cordon, continue to monitor for 1 more day, possible discharge tomorrow if stable.
--- NOTE | 2016-09-09 13:31 | PN ---
Mrs. Castorena is status post stenting of RCA by Dr. Jacobs on , 09/07. She is doing better. She has moderate disease in LAD. Her vital signs are stable. S1, S2 heard normally. Lungs are clear. Abdomen and lower extremity is unchanged. Plan is to continue current medications, increase activity. Plan for discharge tomorrow. She has been counseling regarding the need to refrain from smoking. SILVIAD
[2016-09-09] MEDS: ATORVASTATIN 80 MG TAB PO SCH (19:57)
[2016-09-09] MEDS: CITALOPRAM HYDROBROMIDE 20 MG TAB PO SCH (19:57)
[2016-09-09] MEDS: ZOLPIDEM 5 MG TAB PO PRN (22:37)
[2016-09-10 04:18] VITALS: TEMP 97.5
[2016-09-10 07:49] LABS: Basophils # (A) 0.1 k/uL (0-0.2); Basophils % (A) 1 %; CH 31.4; CHCM 33.4; Eosinophils # (A) 0.2 k/uL (0-0.7); Eosinophils % (A) 1 %; HDW 2.22; Luc # (Auto) 0.21; Luc % (Auto) 2; Lymphocytes # (A) 2.6 k/uL (1.0-4.8); Lymphocytes % (A) 19 %; MCH 31.5 pg (25.0-35.0); MCHC 33.3 g/dL (31.0-37.0); MCV 94.5 fL (80.0-100.0); Mean Platelet Volume 7.9; Monocytes % (A) 8 %; Neutrophils # (A) 9.5 k/uL (1.3-7.7); Neutrophils % (A) 70 %; RBC 4.45 m/uL (3.80-5.40); RDW 12.6 % (11.5-15.5); WBC 13.6 k/uL (3.8-10.6); WBC (Perox) 12.95
[2016-09-10 07:53] LABS: ALT 31 U/L (9-52); AST 32 U/L (14-36); Alkaline Phosphatase 47 U/L (38-126); Anion Gap 10 mmol/L; Blood Urea Nitrogen 15 mg/dL (7-17); Calcium 9.3 mg/dL (8.4-10.2); Carbon Dioxide 20 mmol/L (22-30); Chloride 111 mmol/L (98-107); Glucose 89 mg/dL (74-99); Non-African American GFR(MDRD) >60 (>60 ml/min/1.73 sqM); Potassium 4.1 mmol/L (3.5-5.1); Sodium 141 mmol/L (137-145); Total Bilirubin 0.8 mg/dL (0.2-1.3); Total Protein 6.5 g/dL (6.3-8.2)
[2016-09-10] MEDS: ASCORBIC ACID 500 MG TAB PO SCH (07:58)
[2016-09-10] MEDS: CLOPIDOGREL 75 MG TAB PO SCH (07:58)
[2016-09-10] MEDS: CHOLECALCIFEROL 1,000 UNIT TAB PO SCH (07:58)
[2016-09-10] MEDS: METOPROLOL TARTRATE 12.5 MG TAB PO SCH (07:58)
[2016-09-10] MEDS: NICOTINE 21MG/24HR PATCH TRANSDERM SCH (07:59)
[2016-09-10] MEDS: HEPARIN SODIUM,PORCINE 5,000 UNIT/ML 1 ML VIAL SQ SCH (07:59)
[2016-09-10] MEDS: LACTOBACILLUS ACIDOPH & BULGAR 1 EACH PACKET PO SCH (07:59)
[2016-09-10] MEDS ORDERED: ASPIRIN 81 MG CHEW PO SCH (09:00)
[2016-09-10] MEDS: traMADol 50 MG TAB PO SCH (09:03)
[2016-09-10 11:03] VITALS: BP 103/63; PULSE 67; RESP 16
--- NOTE | 2016-09-10 11:23 | P.DS ---
Providers Date of admission: 09/07/16 13:38 Expected date of discharge: 09/10/16 Attending physician: Araceli Whitfield Consults: 09/07/16 14:32 Consult Physician Routine Consulting Provider: [facility] Consult Reason/Comments: Post Interventional patient Do you want consulting provider notified?: Already Contacted [facility] Course: Diagnoses on discharge: 1. Acute inferior lateral ST elevation myocardial infarction present on admission. Patient underwent stat heart catheterization with stent placement to the RCA. She is currently on aspirin and Plavix. She's also been started on Lipitor and metoprolol 2. Nicotine dependence: Patient has been started on nicotine patch. She's been counseled on quitting smoking for greater than minutes 3. Leukocytosis likely steroid related. Repeat labs in a.m. 4. Hypomagnesemia improved with supplement 5. Hyperlipidemia statin 6. Generalized anxiety disorder continue [facility] course: This is a 75-year-old female, patient of Dr. Sykes. She has a known past medical history of hyperlipidemia, hypertension, nicotine dependence, anxiety and depression. Patient presents to the emergency room with complaints of chest pain in the epigastric area. She reports it is a heartburn-like sensation. Symptoms came on suddenly yesterday afternoon. EMS was called and patient was brought into the emergency room. Initial EKG had revealed a normal sinus rhythm with inferior lateral ST elevation in the imbalance. EKG in the emergency room also showing ST elevation in his inferior lateral leads. Patient was given an aspirin. Cardiology was consulted and she was taken to the heart quality assurance qa lab technician. Patient had stent to the RCA. Started on aspirin and Plavix. Also was placed on Lipitor. Patient does have a IV dye ALLERGY. she did receive a dose of Solu-Medrol and Benadryl due to the ALLERGY. Patient's is in the ICU. She is stable. She did have episode of chest pain after stent placement. A repeat EKG completed and cardiology reviewed. There is no further ST elevation. Patient is now chest pain-free. She denies any nausea or vomiting. Denies any bowel movement changes. Denies any urinary symptoms. Denies any fevers chills or sweats. She does admit when she had the chest pain she was also having some shortness of breath and sweating. Patient did well throughout the admission her chest pain resolved she was monitored on telemetry she was stable she was discharged home on 09/10/2016 She will follow-up with her primary care physician Dr. Loza within one week she will also follow with cardiology in 1-2 weeks Patient Condition at Discharge: Serious Plan - Discharge Summary New Discharge Prescriptions: New Aspirin 81 mg PO DAILY Atorvastatin [Lipitor] 80 mg PO HS tab Clopidogrel [Plavix] 75 mg PO DAILY tab Metoprolol Tartrate [Lopressor] 12.5 mg PO DAILY tab Nicotine 21Mg/24Hr Patch [Habitrol] 1 patch TRANSDERM DAILY patch Nitroglycerin Sl Tabs [Nitrostat] 0.4 mg SUBLINGUAL Q5M PRN tab PRN Reason: Chest Pain Continue Cholecalciferol [Vitamin D3] 1,000 unit PO DAILY Citalopram Hydrobromide [CeleXA] 20 mg PO HS traMADol HCL [Ultram] 50 mg PO BID Ascorbic Acid [Vitamin C] 500 mg PO DAILY L.acidoph,Paracasei, B.lactis [Probiotic] 1 cap PO DAILY Digoxin [Lanoxin] 125 mcg PO DAILY tiZANidine HCL [Zanaflex] 2 mg PO Q6H PRN PRN Reason: MUSCLE SPASMS Discontinued Fenofibric Acid (Choline) [Fenofibric Acid] 135 mg PO DAILY Discharge Medication List Cholecalciferol [Vitamin D3] 1,000 unit PO DAILY 10/14/15 [History] Citalopram Hydrobromide [CeleXA] 20 mg PO HS 10/14/15 [History] Ascorbic Acid [Vitamin C] 500 mg PO DAILY 10/21/15 [History] traMADol HCL [Ultram] 50 mg PO BID 10/21/15 [History] Digoxin [Lanoxin] 125 mcg PO DAILY 09/07/16 [History] L.acidoph,Paracasei, B.lactis [Probiotic] 1 cap PO DAILY 09/07/16 [History] tiZANidine HCL [Zanaflex] 2 mg PO Q6H PRN 09/07/16 [History] Aspirin 81 mg PO DAILY 09/10/16 [Rx] Atorvastatin [Lipitor] 80 mg PO HS tab 09/10/16 [Rx] Clopidogrel [Plavix] 75 mg PO DAILY tab 09/10/16 [Rx] Metoprolol Tartrate [Lopressor] 12.5 mg PO DAILY tab 09/10/16 [Rx] Nicotine 21Mg/24Hr Patch [Habitrol] 1 patch TRANSDERM DAILY patch 09/10/16 [Rx] Nitroglycerin Sl Tabs [Nitrostat] 0.4 mg SUBLINGUAL Q5M PRN tab 09/10/16 [Rx] Follow up Appointment(s)/Referral(s): Rosario Loza MD [Primary Care Provider] - 1-2 days (Please call office when open to make appointment) Ventura Jacobs MD [STAFF PHYSICIAN] - 09/19/16 4:15 pm Patient Instructions/Handouts: Heart Catheterization (DC)
--- NOTE | 2016-09-10 17:19 | PN ---
Mrs. Castorena is comfortable, resting. Denies any chest pain, shortness of breath or palpitations. Vital signs are stable. S1/S2 heard normally. Lungs are clear. Abdomen and lower extremity exam unchanged. Plan is to discharge her today and she will see Dr. Jacobs in one week in the office. Discharge instructions regarding activity, diet and medications were given and I personally gave the prescriptions to the nurse. ROME
--- NOTE | 2016-09-29 15:01 | CC ---
DATE OF PROCEDURE: 09/07/2016 PERFORMING PHYSICIAN: RUDY HOUSTON, WIRING TECHNICIAN PROCEDURE PERFORMED: 1. Selective right and left coronary angiogram. 2. Successful stenting of the mid-right coronary artery using 2.75 x 18 mm Xience RYAN with good angiographic results. INDICATION: This is a pleasant 76-year-old female patient who presented to the hospital with the chest discomfort and was diagnosed with acute inferior ST-elevation myocardial infarction. She was advised to undergo an emergent heart catheterization. APPROACH: Right common femoral artery. COMPLICATION: None. LEVEL OF SEDATION: Moderate. PROCEDURE DESCRIPTION: After obtaining an informed consent, the patient was brought to the Cardiac Suture Polisher. The right common femoral artery was cannulated using micropuncture technique. The micropuncture wire passed easily and I placed a 6 [place] sheath in the right common femoral artery. After that, I did selective right and left coronary angiogram and JR4 and JL4 catheters. After that, I did intervene on the RCA. Please see a separate paragraph for that. SELECTIVE CORONARY ANGIOGRAM: 1. The right coronary artery is a large caliber vessel and it is a dominant vessel. It is 100% occluded acutely in the midportion. 2. The left main is angiographically normal. It bifurcates into the left circumflex and left anterior descending artery. 3. The left circumflex is a large caliber vessel and it is nondominant vessel. The left circumflex itself is angiographically normal. It gives rise into the first OM branch which acts as ramus intermedius branch which appeared to have a tight lesion in the proximal portion about 80% to 90%. 4. The left anterior descending artery, the proximal LAD is angiographically normal and gives rise into the first diagonal branch which appears to have mild disease only. The mid LAD is normal and gives rise in the second diagonal branch which appeared to be angiographically normal. The LAD study appears to be angiographically normal. 5. PCI of the RCA, anticoagulation was initiated using Angiomax. Subsequently , a JR4 guide and the RCA was engaged. The run-through wire was used to wire the RCA and cross the total occlusion. I did ( ) balloon angioplasty using 2.0 x 12 mm balloon, then I deployed 2.75 x 18 mm ( ) which was positioned under fluoroscopic guidance and there is nominal pressure with the flow on angiograph showed good angiographic results. The procedure was completed without any complication. CONCLUSION: 1. Acute inferior ST-elevation myocardial infarction. 2. 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 3. Mild severe disease involving the first OM/ramus intermedius. 4. Mild disease involving the LAD. 5. Successful stenting of the mid RCA using 2.75 x 18 mm Xience RYAN with good angiographic results. ( ) dual antiplatelet therapy and ( ). Follow up with the patient. ROME
== END 2016-09-10 13:26 | disposition home or self-care (01) | DRG 247 ==
LOC: EC 13:17 → 6ICU 13:38 → 6SEL 09-08 20:11
PROVIDERS: ADMIT Internal Medicine; ATTEND Internal Medicine
PROC: B211YZZ Fluoroscopy of Multiple Coronary Arteries using Other Contrast (ICD-10-PCS; principal; 2016-09-07 13:30)
PROC: 3E0234Z Introduction of Serum, Toxoid and Vaccine into Muscle, Percutaneous Approach (ICD-10-PCS; principal; 2016-09-07 13:30)
PROC: 027034Z Dilation of Coronary Artery, One Artery with Drug-eluting Intraluminal Device, Percutaneous Approach (ICD-10-PCS; principal; 2016-09-07 13:30)
DX: I21.19 ST elevation (STEMI) myocardial infarction involving other coronary artery of inferior wall (principal); I95.9 Hypotension, unspecified; E83.42 Hypomagnesemia; I25.10 Atherosclerotic heart disease of native coronary artery without angina pectoris; Z23 Encounter for immunization; I10 Essential (primary) hypertension; F17.200 Nicotine dependence, unspecified, uncomplicated; E78.5 Hyperlipidemia, unspecified; M10.9 Gout, unspecified; M19.91 Primary osteoarthritis, unspecified site; D72.829 Elevated white blood cell count, unspecified; T38.0X5A Adverse effect of glucocorticoids and synthetic analogues, initial encounter; M48.00 Spinal stenosis, site unspecified; F32.9 Major depressive disorder, single episode, unspecified; F41.1 Generalized anxiety disorder; Z87.440 Personal history of urinary (tract) infections; Z98.1 Arthrodesis status; Z90.710 Acquired absence of both cervix and uterus; Z90.49 Acquired absence of other specified parts of digestive tract; Z86.14 Personal history of Methicillin resistant Staphylococcus aureus infection; Z79.899 Other long term (current) drug therapy; Z91.041 Radiographic dye allergy status; Z88.8 Allergy status to other drugs, medicaments and biological substances
CPT/HCPCS: 36415; 71010; 80048; 80053; 81001; 82550; 82553; 82607; 83735; 84100; 84484; 85025; 85027; 85610; 85730; 87086; 90732; 93005; 93306; 93458

== ENCOUNTER 2016-10-03 13:29 | Emergency (ER) | payer MEDICARE ==
[2016-10-03 13:50] VITALS: RESP 18
--- NOTE | 2016-10-03 15:03 | XR ---
EXAMINATION TYPE: XR cervical spine comp DATE OF EXAM: 10/03/2016 TECHNIQUE: Frontal, lateral, oblique, and open mouth view of the cervical spine are obtained. HISTORY: Right-sided neck pain radiating up to head per patient. COMPARISON: None FINDINGS: The cervical spine is visualized in its entirety from C1 thru the top of T1 level, it is s atisfactory in alignment without evidence of acute fracture or dislocation. The pre-vertebral soft t issue appears within normal limits. The C1-C2 articulation is within normal limits on the open mouth view. Vertebral body heights are maintained. There is artificial disc material at C4-C5 and C5-C6 levels. A nterior screws are seen in the vertebra at C4-C6 levels. There is mild disc space narrowing and spurr ing C6-C7 level. The oblique images are within normal limits. Overlying soft tissue is unremarkable. IMPRESSION: Postsurgical change C4-C6 level as detailed above.
--- NOTE | 2016-10-03 15:45 | ED ---
General Adult HPI - General Chief complaint: Neck Pain/Injury Stated complaint: Head/Neck Pain Source: patient, family, RN notes reviewed, old records reviewed Mode of arrival: ambulatory Limitations: no limitations - History of Present Illness Initial comments: Chief complaint and history of present illness this is a 76-year-old female here with her . The patient reports for the past 3 days she's had pain to her right sternocleidal mastoid muscle area. This particular muscle tenderness to be tense as compared to the left discomfort is to the area behind this muscle. And behind the right ear. No direct trauma. Patient does have a history of cervical spine disease and she has had cervical fusion. Patient reports there is pain with palpation in this area pain increases with looking to the right as opposed to the left. She can flex and extend with minimal discomfort. No bruising noted. We did discuss early shingles. - Related Data Home Medications Medication Instructions Recorded Confirmed Cholecalciferol [Vitamin D3] 1,000 unit PO DAILY 10/14/15 10/03/16 Citalopram Hydrobromide [CeleXA] 20 mg PO DAILY 10/14/15 10/03/16 traMADol HCL [Ultram] 50 mg PO BID PRN 10/21/15 10/03/16 tiZANidine HCL [Zanaflex] 2 mg PO BID PRN 09/07/16 10/03/16 Ascorbic Acid [Vitamin C] 1,000 mg PO DAILY 10/03/16 10/03/16 Hydrocodone/Acetaminophen [S[place] 1 tab PO ONCE PRN 10/03/16 10/03/16 5-325] Previous Rx's Medication Instructions Recorded Aspirin 81 mg PO DAILY 09/10/16 Atorvastatin [Lipitor] 80 mg PO HS tab 09/10/16 Clopidogrel [Plavix] 75 mg PO DAILY tab 09/10/16 Metoprolol Tartrate [Lopressor] 12.5 mg PO DAILY tab 09/10/16 Nitroglycerin Sl Tabs [Nitrostat] 0.4 mg SUBLINGUAL Q5M PRN tab 09/10/16 Hydrocodone/Acetaminophen [[place] 1 each PO Q6HR PRN #10 tab 10/03/16 5-325] Allergies Allergy/AdvReac Type Severity Reaction Status Date / Time Iodinated Contrast- Oral and Allergy Itching Verified 10/03/16 14:12 IV Dye naproxen Allergy Rash/Hives/Tongue Verified 10/03/16 14:12 Swelling naproxen sodium [From Aleve] Allergy Rash/Hives/Tongue Verified 10/03/16 14:12 Swelling Review of Systems ROS Statement: Those systems with pertinent positive or pertinent negative responses have been documented in the HPI. Review of systems. The patient discomfort came on acutely 1 night while she laying in bed. Pain increases when she looks to the right. Pain increases when she touches the area behind her ear and along the posterior right sternocleidomastoid muscle. No difficulty breathing. No bruising on is noted. No direct injury noted early shingles was discussed. Patient does have a past history of arthritis the neck and cervical surgery. Patient denying chest pain shortness breath GI/ problems no neuro deficits. All systems are reviewed. Past medical problems significant osteoarthritis, hyperlipidemia hypertension. Proximal one month ago she had a stent laced in her heart. She had no chest pain. The patient's surgeries include appendectomy, low back surgery breast surgery, hysterectomy partial, cervical fusion. Family history no cancers. The patient is still smoking trying to stop and decreasing daily. Denies alcohol use. ROS Other: All systems not noted in ROS Statement are negative. Past Medical History Past Medical History: Hyperlipidemia, Hypertension, Osteoarthritis (OA) Additional Past Medical History / Comment(s): 09-07-16 stemi. other pmh includes:C. diff in 2006, anxiety, depression, nicotine dependence, bronchitis , 1 episode of gout in past.uti, spinal stenosis. pt has thin fragile skin use paper tape. 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 pt stated"they took a piece of bowel to use in the reconstruction sx for ureter", neck fusion, lt breast sx removed fibroid,09-07-16 heart cath w/ stent to rca Past Anesthesia/Blood Transfusion Reactions: No Reported Reaction Additional Past Anesthesia/Blood Transfusion Reaction / Comment(s): blood transfusion in past-no reaction. Past Psychological History: Anxiety, Depression Smoking Status: Current every day smoker Past Alcohol Use History: None Reported Past Drug Use History: None Reported - Past Family History Mother Family Medical History: CVA/TIA, Diabetes Mellitus Father Family Medical History: COPD Additional Family Medical History / Comment(s): emphysema General Exam - General Exam Comments Initial Comments: General: The patient is awake and alert, complaining of musculoskeletal pain just behind her right sternocleidal mastoid going up to the area behind the ear. Vital signs temp 99.1 pulse ox 94 ra, bp 95/51 Eye: Pupils are equal, round and reactive to light, extra-ocular movements are intact ; there is normal conjunctiva bilaterally. No signs of icterus. Ears, nose, mouth and throat: There are moist mucous membranes and no oral lesions. Neck: Pain to the area behind the right year, no mastoid tenderness with palpation. Tympanic membranes clear but to direct review. No drainage from the ear. Pain increases when she turns her head to the right. Tenderness to the muscle just posterior to the right sternocleidomastoid. No rash noted early shingles was discussed. The right SCM is tight as compared to the left. Patient does have a history of osteoarthritis and neck cervical fusion. No carotid bruit. Cardiovascular: There is a regular rate and rhythm. No murmur, rub or gallop is appreciated. Respiratory: Lungs are clear to auscultation, respirations are non-labored, breath sounds are equal. No wheezes, stridor, rales, or rhonchi. Gastrointestinal: Soft, non-distended, non-tender abdomen without masses or organomegaly noted. There is no rebound or guarding present. No CVA tenderness. Bowel sounds are unremarkable. Back: Past history of cervical and lumbar surgery. Musculoskeletal: Normal ROM, no tenderness, There is no pedal edema. There is no calf tenderness or swelling. Sensation intact. Pulses equal bilaterally 2+. Neurological: CN II-XII intact, There are no obvious motor or sensory deficits. Coordination appears grossly intact. Speech is normal. No focal or lateralizing findings Skin: Skin is warm and dry and no rashes or lesions are noted. Limitations: no limitations Course Vital Signs 08/08/17 13:48 Temperature 99.1 F Pulse Rate 87 Respiratory 18 Rate Blood Pressure 95/51 O2 Sat by Pulse 94 L Oximetry Medical Decision Making - Medical Decision Making Medical decision making; X-rays of cervical spine were done and reviewed by radiologist his findings are the cervical spine as visualized this entirety from C1 through the top of T1 level, it is satisfactory alignment without evidence of acute fracture or dislocation. The prevertebral space tissue. Within normal limits. The C1-C2 articulation is within normal limits on the open-mouth. Vertebral body height is maintained. There is facial disc material at C4-C5 and C5-C6 level. Anterior screws are seen in the vertebral vertebra at C4 C6 levels. Urine is mild disc space narrowing and spurring C6-C7 levels. The oblique images are within normal limits. Overlying soft tissues unremarkable. Impression; postsurgical changes C6 level is above. As read by Dr. tolliver CT of the mastoid without contrast was done and reviewed by radiologist his impression is computed tomography scan of the internal auditory canals performed without contrast. Thin cut axial images are obtained. Coronal reformatted images were also reviewed. Findings the external auditory canal is patent bilaterally. Mastoid air cells show no evidence of normal opacification bilaterally. The middle ear ossicles are symmetric and unremarkable. There is no evidence of suspicious surrounding soft tissue density suggest cholesteatoma. The skin is preserved bilaterally the cochlea in the semicircular canals are symmetric and unremarkable. Vestibular aqueducts and internal carotid canals appear unremarkable. Temporomandibular joints are maintained bilaterally. There is complete opacification of the right maxillary sinus which may be related to mucoid thickening or more likely a large mucous retention cyst or polyp. Mild mucosal thickening involving the ethmoid air cells are noted. There is no nasal septal deviation. Parotid glands are symmetric. Visualized nasopharynx and oropharynx are symmetric. Intraorbital structures have normal appearance. Impression; near complete opacification of the right maxillary sinus and occlusion of the ostiomeatal complex likely secondary to a large polyp or mucus retention cyst. Mastoid air cells have normal appearance. As read by Dr. Dyson The patient referred back to her family physician as well as on-call ENT Dr. Carreno for further evaluation. Specifically concerning the mucous retention cyst in the right maxillary sinus. Patient is otherwise afebrile and not complaining of sinus pressure or problems. We discussed wryneck protocol was. Her right sternocleidomastoid he is is notably taut. The patient be placed on pain medication muscle relaxant and advised to follow up with her family physician. Disposition Clinical Impression: Torticollis, acute Disposition: HOME SELF-CARE Condition: Fair Instructions: Spasmodic Torticollis (ED) Additional Instructions: Medications as directed. Follow-up with family physician and on-call ENT Dr. Carreno concerning your maxillary sinus retention cyst. Stop taking tramadol while taking S[place]. Prescriptions: Hydrocodone/Acetaminophen [[place] 5-325] 1 each PO Q6HR PRN #10 tab PRN Reason: Pain Referrals: Rosario Loza MD [Primary Care Provider] - 1-2 days Ja Chamberlain DO [Doctor of Osteopathic Medicine] - 1-2 days Time of Disposition: 16:55
--- NOTE | 2016-10-03 16:38 | CT ---
EXAMINATION TYPE: CT mastoid wo con DATE OF EXAM: 10/03/2016 COMPARISON: NONE HISTORY: Right mastoid pain x [address] DLP: 150.00 mGycm. Automated Exposure Control for Dose Reduction was Utilized. TECHNIQUE: CT scan of internal auditory canal is performed without contrast, thin cut axial images ar e obtained, coronal reformatted images are also reviewed. FINDINGS: The external auditory canals are patent bilaterally. Mastoid air cells show no evidence of abnormal opacification bilaterally. The middle ear ossicles are symmetric and unremarkable. There is no evidence of suspicious surrounding soft tissue density to suggest cholesteatoma. The scutum is preserved bilaterally. The cochlea and the semicircular canals are symmetric and unremarkable. Ves tibular aqueduct and internal carotid canal appear unremarkable. Temporomandibular joints are maintained bilaterally. There is complete opacification of the right maxillary sinus which may be related to mucosal thickeni ng or more likely a large mucous retention cyst or polyp. Mild mucosal thickening involving the ethmo id air cells are noted. There is a nasal septal deviation. Parotid glands are symmetric. Visualized nasopharynx and oropharynx are symmetric. Intraorbital struc tures have a normal appearance. IMPRESSION: 1. Near complete opacification of the right maxillary sinus and occlusion of the ostiomeatal complex likely secondary to a large polyp or mucous retention cyst. 2. Mastoid air cells have a normal appearance
[2016-10-03 17:12] VITALS: BP 115/64; PULSE 62; TEMP 98.1
== END 2016-10-03 17:10 | disposition home or self-care (01) ==
LOC: EC 13:29
DX: M43.6 Torticollis (principal); M48.02 Spinal stenosis, cervical region; M46.02 Spinal enthesopathy, cervical region; J34.89 Other specified disorders of nose and nasal sinuses; R93.8 Abnormal findings on diagnostic imaging of other specified body structures; F32.9 Major depressive disorder, single episode, unspecified; F17.200 Nicotine dependence, unspecified, uncomplicated; Z79.899 Other long term (current) drug therapy; Z88.6 Allergy status to analgesic agent; Z91.041 Radiographic dye allergy status; Z98.1 Arthrodesis status
CPT/HCPCS: 70486; 72050; 99284

== ENCOUNTER 2016-10-17 10:38 | Inpatient (IN) | payer MEDICARE ==
[~2016-10-17 10:38] MED LIST changes: +ALPRAZolam 0.25 MG TAB PO PRN; +ALPRAZolam 0.5 MG TAB PO PRN; +ASPIRIN 325 MG TAB PO STA; +ATORVASTATIN 80 MG TAB PO STA; +NITROGLYCERIN SL TABS 0.4 MG TAB SUBLINGUAL PRN; -SODIUM CHLORIDE 0.9% (PF) 10 ML VIAL ONE; +SODIUM CHLORIDE 0.9% 1,000 ML in EMPTY BAG 1 BAG IV ONE; -niCARdipine 25 MG/10 ML VIAL ONE
[2016-10-17] MEDS ORDERED: MIDAZOLAM 2 MG/2 ML VIAL IV ONE (12:27)
[2016-10-17] MEDS ORDERED: LIDOCAINE 2% INJ 20 MG/ML SQ ONE (12:30)
[2016-10-17] MEDS ORDERED: diphenhydrAMINE 50 MG/ML 1 ML VIAL IVP ONE (12:36)
[2016-10-17] MEDS ORDERED: methylPREDNISolone SOD SUCCI 125 MG/2 ML VIAL IV ONE (12:37)
[2016-10-17] MEDS ORDERED: NOREPINEPHRIN 4 MG-0.9% NS PMX 4 MG/250 ML ML IV ONE (12:41)
[2016-10-17] MEDS ORDERED: EPINEPHrine 1 MG/ML 1 ML AMP IV ONE (12:43)
[2016-10-17] MEDS ORDERED: METOPROLOL TARTRATE 5 MG/5 ML VIAL IVP ONE (12:45)
[2016-10-17] MEDS ORDERED: ONDANSETRON 4 MG/2 ML VIAL IVP ONE (12:49)
[2016-10-17] MEDS ORDERED: BIVALIRUDIN BOLUS 250 MG/50 ML IV ONE (13:01)
[2016-10-17] MEDS ORDERED: BIVALIRUDIN 250 MG in SODIUM CHLORIDE 0.9% 50 ML IV ONE (13:01)
[2016-10-17] MEDS ORDERED: NITROGLYCERIN 1000MCG/10ML SYRINGE INTRACORON ONE (13:14)
[2016-10-17] MEDS ORDERED: traMADol 50 MG TAB PO PRN (13:24)
[2016-10-17] MEDS ORDERED: NITROGLYCERIN SL TABS 0.4 MG TAB SUBLINGUAL PRN ×2 (13:24→13:25)
[2016-10-17] MEDS ORDERED: RX INFO: IV CONTRAST WAS GIVEN 1 EACH MISC MISCELLANE PRN (13:25)
[2016-10-17] MEDS ORDERED: ATROPINE SULFATE 0.1 MG/ML 10ML SYRINGE IV PRN (13:25)
[2016-10-17] MEDS ORDERED: MAG HYDROX/AL HYDROX/SIMETH 30 ML CUP PO PRN (13:25)
[2016-10-17] MEDS ORDERED: ZOLPIDEM 5 MG TAB PO PRN (13:25)
[2016-10-17] MEDS ORDERED: SODIUM CHLORIDE 0.9% 1,000 ML IV SCH (13:30)
[2016-10-17] MEDS ORDERED: IOHEXOL 350 MG/ML 125ML BOTTLE INJ ONE (13:35)
[2016-10-17] MEDS ORDERED: CLOPIDOGREL 75 MG TAB PO ONE (13:36)
[2016-10-17] MEDS ORDERED: IODIXANOL 320 MG/ML 100 ML INTRAARTER ONE (13:36)
[2016-10-17] MEDS ORDERED: NOREPINEPHRIN 4 MG-0.9% NS PMX 4 MG/250 ML ML IV SCH (15:15)
[2016-10-17 16:01] VITALS: BMI 23.0
[2016-10-17] MEDS ORDERED: CITALOPRAM HYDROBROMIDE 20 MG TAB PO SCH (21:00)
[2016-10-17] MEDS ORDERED: ATORVASTATIN 80 MG TAB PO SCH (21:00)
[2016-10-18 04:54] LABS: Basophils # (A) 0.2 k/uL (0-0.2); Basophils % (A) 1 %; CH 31.7; CHCM 32.3; Eosinophils % (A) 0 %; HCT 39.6 % (34.0-46.0); HDW 2.47; HGB 12.8 gm/dL (11.4-16.0); Luc # (Auto) 0.26; Luc % (Auto) 1; Lymphocytes # (A) 1.8 k/uL (1.0-4.8); Lymphocytes % (A) 7 %; MCH 31.9 pg (25.0-35.0); MCHC 32.3 g/dL (31.0-37.0); MCV 98.9 fL (80.0-100.0); Mean Platelet Volume 8.3; Monocytes # (A) 1.6 k/uL (0-1.0); Monocytes % (A) 6 %; Neutrophils % (A) 85 %; RDW 13.4 % (11.5-15.5); WBC 24.8 k/uL (3.8-10.6); WBC (Perox) 26.39
[2016-10-18 05:09] LABS: Anion Gap 10 mmol/L; Blood Urea Nitrogen 23 mg/dL (7-17); Calcium 8.7 mg/dL (8.4-10.2); Carbon Dioxide 18 mmol/L (22-30); Chloride 116 mmol/L (98-107); Glucose 129 mg/dL (74-99); Non-African American GFR(MDRD) >60 (>60 ml/min/1.73 sqM); Potassium 4.6 mmol/L (3.5-5.1); Sodium 144 mmol/L (137-145)
[2016-10-18] MEDS ORDERED: SODIUM CHLORIDE 0.9% 250 ML IV ONE (06:34)
[2016-10-18 08:39] VITALS: TEMP 98.4
[2016-10-18] MEDS ORDERED: ASPIRIN 81 MG CHEW PO SCH (09:00)
[2016-10-18] MEDS ORDERED: METOPROLOL TARTRATE 12.5 MG TAB PO SCH (09:00)
[2016-10-18] MEDS ORDERED: CHOLECALCIFEROL 1,000 UNIT TAB PO SCH (09:00)
[2016-10-18] MEDS ORDERED: CLOPIDOGREL 75 MG TAB PO SCH (09:00)
[2016-10-18] MEDS ORDERED: ASCORBIC ACID 500 MG TAB PO SCH (09:00)
[2016-10-18 10:22] VITALS: BP 89/57; PULSE 74; RESP 12
--- NOTE | 2016-10-18 19:17 | CC ---
DATE OF SERVICE: 10/17/16 PERFORMING PHYSICIAN: Ventura Jacobs M.D., sales and marketing director. PROCEDURE PERFORMED: 1. Selective right and left coronary angiogram. 2. Successful stenting of the ramus intermedius coronary artery using 2.25 x 16 mm Promus Premier drug eluting stent with good angiographic results. INDICATIONS: This is a pleasant 76 year old female patient who is known to have CAD where she underwent stenting of the RCA in the setting of an acute inferior ST elevation myocardial infarction a few weeks ago and she was found to have severe disease involving the ramus intermedius. APPROACH: Right common femoral artery. COMPLICATIONS: None. LEVEL OF SEDATION: Moderate with a sedation length of about 48 minutes. PROCEDURE DESCRIPTION: After obtaining informed consent, the patient was brought to the cardiac agricultural labor camp manager. The right common femoral artery was cannulated using micropuncture technique. The micropuncture wire passed easily. Then, I placed a 6 Hungarian sheath in the right common femoral artery. After that, I did selective right and left coronary angiogram using JR4 and JL4 catheters. After that, I did intervene on the ramus intermedius. Please see a separate paragraph for that. SELECTIVE CORONARY ANGIOGRAM: 1. The right coronary artery is a large caliber vessel and it is a dominant vessel. The proximal RCA has intermediate lesion in the range of 50%. The mid RCA is stented and the stent is patent. The RCA distally is normal and it bifurcates into PDA and PLV branches both are angiographically normal. 2. The left main is angiographically normal. It bifurcates into left circumflex and left anterior descending artery as well as ramus intermedius. 3. The left circumflex is a moderate caliber vessel and it was a non-dominant vessel and seems to be angiographically normal. 4. The ramus intermedius had a lesion seems to be in the range of 70 to 80%. 5. The left anterior descending coronary artery: The proximal left anterior descending artery appeared to be angiographically normal. The mid LAD appeared to be normal as well and the LAD distally is normal. The LAD in the proximal portion gives rise into a diag branch, which seems to be angiographically normal. PCI of the RAMUS: Anticoagulation was initiated using Angiomax. Subsequently, I took a JL3.5 guiding catheter and the left main was engaged. A Whisper wire was used to cross the wire the ramus intermedius. Subsequently, I did PTCA ballooning using 2.0 x 15 mm balloon and then I deployed 2.25 x 16 mm Promus Premier drug eluting stent where the stent was position under fluoroscopy guidance and deployed under 10 atmospheres for 20 seconds. The following angiogram showed good angiographic results without any perforation and dissection with good flow. By the end of the procedure, the patient was hypotensive and she developed reaction to the IV contrast. Her pressure has been in the 90s on 5 mcg of Levophed. CONCLUSION: ( ). POSTPROCEDURE MANAGEMENT: 1. Try to wean the patient from Levophed. 2. Risk factor modifications. 3. Follow-up with the patient. 4. Dual antiplatelet therapy. MTDD
--- NOTE | 2016-10-22 21:52 | DS ---
BRIEF HISTORY: This is a pleasant 76-year-old female patient who was admitted to the hospital and underwent successful percutaneous stenting of the ramus intermedius coronary artery with good angiographic result and without any complication. The procedure was performed from the right groin which is soft and nontender and without any bruises. The procedure was complicated by hypotension which was secondary to IV contrast allergy. The patient was admitted to the Intensive Care Unit and she was discharge the following day after she received fluids. The patient is going to be discharged home on dual antiplatelet therapy and I will follow-up with the patient in the office next week. ROME
== END 2016-10-18 10:42 | disposition home or self-care (01) | DRG 247 ==
LOC: CATHCVL 10:38 → 6ICU 13:18 → CATHCVL 16:08 → 6ICU 16:08
PROVIDERS: ADMIT Internal Medicine Interventional Cardiology; ATTEND Internal Medicine Interventional Cardiology
PROC: 4A023N7 Measurement of Cardiac Sampling and Pressure, Left Heart, Percutaneous Approach (ICD-10-PCS; 2016-10-17)
PROC: 027034Z Dilation of Coronary Artery, One Artery with Drug-eluting Intraluminal Device, Percutaneous Approach (ICD-10-PCS; principal; 2016-10-17 12:30)
PROC: B2111ZZ Fluoroscopy of Multiple Coronary Arteries using Low Osmolar Contrast (ICD-10-PCS; 2016-10-17 12:30)
DX: I25.110 Atherosclerotic heart disease of native coronary artery with unstable angina pectoris (principal); I95.9 Hypotension, unspecified; I10 Essential (primary) hypertension; E78.5 Hyperlipidemia, unspecified; T50.8X5A Adverse effect of diagnostic agents, initial encounter; I25.2 Old myocardial infarction; F17.210 Nicotine dependence, cigarettes, uncomplicated; Z88.6 Allergy status to analgesic agent; Z95.5 Presence of coronary angioplasty implant and graft; Z71.6 Tobacco abuse counseling; Z79.82 Long term (current) use of aspirin; Z79.891 Long term (current) use of opiate analgesic; Z79.899 Other long term (current) drug therapy; Z79.02 Long term (current) use of antithrombotics/antiplatelets
CPT/HCPCS: 80048; 85025; 93454

== ENCOUNTER 2019-10-21 17:07 | Observation (INO) | payer MEDICARE ==
--- NOTE | 2019-10-21 17:23 | ED ---
Chest Pain HPI - General Stated Complaint: Chest Pain Time Seen by Provider: 10/21/19 17:09 Source: patient, EMS, RN notes reviewed, old records reviewed Mode of arrival: EMS Limitations: no limitations - History of Present Illness Initial Comments: This is a 71-year-old female presenting for evaluation of chest pain today patient's pain anterior in the right scapula in the neck. MD Complaint: chest pain -: hour(s) Onset: during rest Pain Location: right chest Pain Radiation: back, neck Severity: moderate Severity scale (1-10): 6 Quality: tightness Consistency: constant Improves With: nitroglycerin Worsens With: nothing Treatments Prior to Arrival: none - Related Data Home Medications Medication Instructions Recorded Confirmed Cholecalciferol [Vitamin D3 (25 1,000 unit PO DAILY 10/14/15 10/21/19 Mcg = 1000 Iu)] Citalopram Hydrobromide [CeleXA] 20 mg PO HS 10/14/15 10/21/19 Ascorbic Acid [Vitamin C] 1,000 mg PO DAILY 10/03/16 10/21/19 Atorvastatin Calcium [Lipitor] 40 mg PO HS 10/21/19 10/21/19 Magnesium 250 mg PO DAILY 10/21/19 10/21/19 hydrOXYzine HCL [Atarax] 5 - 10 mg PO Q8H PRN 10/21/19 10/21/19 hydrOXYzine HCL [Atarax] 10 - 20 mg PO HS PRN 10/21/19 10/21/19 Previous Rx's Medication Instructions Recorded Aspirin 81 mg PO DAILY 09/10/16 Allergies Allergy/AdvReac Type Severity Reaction Status Date / Time Iodinated Contrast Media Allergy Itching Verified 10/21/19 18:26 naproxen Allergy Rash/Hives/Tongue Verified 10/21/19 18:26 Swelling naproxen sodium [From Aleve] Allergy Rash/Hives/Tongue Verified 10/21/19 18:26 and throat Swelling Review of Systems ROS Statement: Those systems with pertinent positive or pertinent negative responses have been documented in the HPI. ROS Other: All systems not noted in ROS Statement are negative. EKG Findings - EKG Comments: EKG Findings:: EKG sinus tachycardia 123 HI 146 QRS 100 QTC 495 Past Medical History Past Medical History: Chest Pain / Angina, Hyperlipidemia, Myocardial Infarction ([place]), Osteoarthritis (OA) Additional Past Medical History / Comment(s): hx migraines bronchitis, hx gout , spinal stenosis. hx retroperitoneal fibrosis-diarrhea, "issue with g allbladder", hx anemia, Last Myocardial Infarction Date:: 09/07/16 History of Any Multi-Drug Resistant Organisms: C-DIFF, MRSA Date of last positivie culture/infection: "approx 10 years ago in [place]" (per pt) MDRO Source:: bowels Past Surgical History: Appendectomy, Back Surgery, Breast Surgery, Heart Catheterization With Stent, Hysterectomy, Orthopedic Surgery Additional Past Surgical History / Comment(s): sx for retropertoineal fibrosis x4, exploratory lap/lysis of adhesions, biopsy of uterine mass, eyelid lift, rt ureter reconstruction w/ stent that since has been removed- pt stated "they took a piece of bowel to use in the reconstruction sx for ureter", neck fusion, left breast lumpectomy, rt wrist surgery Past Anesthesia/Blood Transfusion Reactions: No Reported Reaction Additional Past Anesthesia/Blood Transfusion Reaction / Comment(s): blood transfusion in past-no reaction. Date of Last Stent Placement:: 10/17/2016 Past Psychological History: Anxiety, Depression Smoking Status: Current every day smoker Past Alcohol Use History: None Reported Past Drug Use History: None Reported - Past Family History Mother Family Medical History: Diabetes Mellitus Father Family Medical History: COPD Additional Family Medical History / Comment(s): emphysema General Exam Limitations: no limitations General appearance: anxious Head exam: Present: atraumatic, normocephalic, normal inspection Eye exam: Present: normal appearance, PERRL, EOMI. Absent: scleral icterus, conjunctival injection, periorbital swelling ENT exam: Present: normal exam, mucous membranes moist Neck exam: Present: normal inspection. Absent: tenderness, meningismus, lymphadenopathy Respiratory exam: Present: normal lung sounds bilaterally. Absent: respiratory distress, wheezes, rales, rhonchi, stridor Cardiovascular Exam: Present: normal rhythm, tachycardia, normal heart sounds. Absent: systolic murmur, diastolic murmur, rubs, gallop, clicks GI/Abdominal exam: Present: soft, normal bowel sounds. Absent: distended, tenderness, guarding, rebound, rigid Extremities exam: Present: normal inspection, full ROM, normal capillary refill. Absent: tenderness, pedal edema, joint swelling, calf tenderness Back exam: Present: normal inspection Neurological exam: Present: alert, oriented X3, CN II-XII intact Psychiatric exam: Present: normal affect, normal mood Skin exam: Present: warm, dry, intact, normal color. Absent: rash Course Vital Signs 10/21/19 10/21/19 10/21/19 17:08 18:00 19:05 Temperature 99.2 F 99 F Pulse Rate 105 H 98 95 Respiratory 18 18 18 Rate Blood Pressure 118/72 123/79 128/81 O2 Sat by Pulse 94 L 95 97 Oximetry - Reevaluation(s) Reevaluation #1: 10/21/19 20:44 Medical records reviewed Reevaluation #2: 10/21/19 20:44 Patient has persistent pain Reevaluation #3: 10/21/19 20:44 Patient informed of results, questions answered Chest Pain MDM - MDM 71 female to the ER we will admit for chest pain observation Disposition Clinical Impression: Chest pain Disposition: ADMITTED IP TO THIS HOSP Instructions (If sedation given, give patient instructions): Chest Pain (ED) Is patient prescribed a controlled substance at d/c from ED?: No Referrals: Rosario Loza MD [Primary Care Provider] - 1-2 days
[2019-10-21 18:00] LABS: Basophils % (A) 0 %; Eosinophils # (A) 0.1 k/uL (0-0.7); Eosinophils % (A) 1 %; HCT 40.2 % (34.0-46.0); HGB 12.9 gm/dL (11.4-16.0); Lymphocytes # (A) 2.5 k/uL (1.0-4.8); Lymphocytes % (A) 21 %; MCH 30.3 pg (25.0-35.0); MCHC 32.1 g/dL (31.0-37.0); MCV 94.6 fL (80.0-100.0); Mean Platelet Volume 8.2; Monocytes # (A) 1.3 k/uL (0-1.0); Monocytes % (A) 11 %; Neutrophils # (A) 7.9 k/uL (1.3-7.7); Neutrophils % (A) 65 %; Platelet Count 251 k/uL (150-450); RBC 4.25 m/uL (3.80-5.40); RDW 11.8 % (11.5-15.5)
[2019-10-21 18:08] LABS: ALT 11 U/L (4-34); AST 20 U/L (14-36); African American GFR (CKD) >90 (>60 ml/min/1.73 sqM); Albumin 3.7 g/dL (3.5-5.0); Alkaline Phosphatase 65 U/L (38-126); Anion Gap 6 mmol/L; Blood Urea Nitrogen 21 mg/dL (7-17); Carbon Dioxide 23 mmol/L (22-30); Chloride 108 mmol/L (98-107); Glucose 113 mg/dL (74-99); Magnesium 1.6 mg/dL (1.6-2.3); Non-African American GFR(CKD) 78 (>60 ml/min/1.73 sqM); Potassium 4.1 mmol/L (3.5-5.1); Sodium 137 mmol/L (137-145); Total Bilirubin 1.3 mg/dL (0.2-1.3); Total Protein 6.5 g/dL (6.3-8.2)
--- NOTE | 2019-10-21 18:08 | XR ---
EXAMINATION TYPE: XR chest 2V DATE OF EXAM: 10/21/2019 COMPARISON: 09/07/2016 HISTORY: Shortness of breath TECHNIQUE: Frontal and lateral views of the chest are obtained. FINDINGS: Scattered senescent parenchymal changes noted. Hyperinflation compatible with COPD. No evidence for infiltrate. No evidence for atelectasis. Heart size is stable. Mediastinal structures are stable and grossly unremarkable. No evidence for hilar prominence. Degenerative changes dorsal spine. IMPRESSION: 1. No evidence for acute pulmonary disease.
[2019-10-21 18:12] LABS: Partial Thromboplastin Time 23.3 sec (22.0-30.0); Prothrombin Time 10.1 sec (9.0-12.0)
[2019-10-21] MEDS ORDERED: diphenhydrAMINE 50 MG/ML 1 ML VIAL IVP STA (18:52)
[2019-10-21] MEDS ORDERED: methylPREDNISolone SOD SUCCI 125 MG/2 ML VIAL IV STA (18:52)
[2019-10-21] MEDS ORDERED: FAMOTIDINE 20 MG/2 ML VIAL IV STA (18:52)
--- NOTE | 2019-10-21 19:38 | CT ---
EXAMINATION TYPE: CT angio chest DATE OF EXAM: 10/21/2019 COMPARISON: 10/21/2015 HISTORY: chest pain CT DLP: 311.7 mGycm CONTRAST: CT chest with contrast and 3D reconstruction with MIP imaging is performed with IV Contrast, patient injected with 74cc mL of Isovue 370. Contrast-enhanced CT of the chest was performed through the course of the pulmonary arteries with maddy g and mediastinal window settings submitted. 3D reconstruction with MIP imaging was also performed. PULMONARY ARTERIES: The pulmonary arteries and their major tributaries are patent. I do not see gerson dence for sizable filling defect to suggest pulmonary embolic process. LUNGS: The lungs are clear and free of infiltrate. Basilar compressive atelectasis noted. No pulmonar y nodule or mass is detected. No pleural effusion. MEDIASTINUM: Ectasia thoracic aorta without aneurysm. The heart is enlarged. No evidence for mediast inal mass. No mediastinal lymph nodes greater than 1cm. HILAR STRUCTURES: No evidence for mass. No hilar lymph nodes greater than 1 cm. UPPER ABDOMEN: No significant abnormality is seen. IMPRESSION: 1. No evidence for Pulmonary embolism at this time.
[2019-10-21] MEDS ORDERED: NITROGLYCERIN SL TABS 0.4 MG TAB SUBLINGUAL PRN (20:42)
[2019-10-21] MEDS ORDERED: MORPHINE SULFATE 4 MG/ML SYRINGE IV PRN (20:42)
[2019-10-21] MEDS ORDERED: ASPIRIN 81 MG PO STA (20:42)
[2019-10-22] MEDS ORDERED: REGADENOSON 0.4 MG/5 ML SYRINGE IV ONE (07:48)
[2019-10-22] MEDS ORDERED: CAFFEINE CITRATE 60 MG/3 ML VIAL IV PRN (07:48)
[2019-10-22] MEDS ORDERED: AMINOPHYLLINE 500 MG/20 ML VIAL IV PRN (07:48)
[2019-10-22 07:49] LABS: Cholesterol 96 mg/dL (<200); HDL Cholesterol 59 mg/dL (40-60); LDL Cholesterol,Calculated 27 mg/dL (0-99); Triglycerides 49 mg/dL (<150)
[2019-10-22] MEDS ORDERED: ASPIRIN 325 MG TAB PO SCH (09:00)
[2019-10-22] MEDS ORDERED: ATORVASTATIN 40 MG TAB PO SCH ×2 (09:00→21:00)
--- NOTE | 2019-10-22 10:16 | ECHOF ---
Referral Reason:cad MEASUREMENTS -------- HEIGHT: 157.5 cm WEIGHT: 57.2 kg BP: 122/73 RVIDd: 4.0 cm (< 3.3) IVSd: 1.2 cm (0.6 - 1.1) LVIDd: 3.5 cm (3.9 - 5.3) LVPWd: 1.3 cm (0.6 - 1.1) IVSs: 1.9 cm LVIDs: 2.0 cm LVPWs: 1.6 cm LAESV Index (A-L): 30.64 ml/m Ao Diam: 2.8 cm (2.0 - 3.7) AV Cusp: 1.7 cm (1.5 - 2.6) MV EXCURSION: 11.820 mm (> 18.000) MV EF SLOPE: 120 mm/s (70 - 150) EPSS: 0.4 cm MV E Albert: 0.78 m/s MV DecT: 117 ms MV A Albert: 0.92 m/s MV E/A Ratio: 0.85 RAP: 20.00 mmHg RVSP: 52.26 mmHg FINDINGS -------- Sinus rhythm. This was a technically adequate study. The left ventricular size is normal. There is mild concentric left ventricular hypertrophy. Overa ll left ventricular systolic function is normal with, an EF between 55 - 60 %. Increased Lap Grade II Diastolic Dysfunction. The right ventricle is moderately enlarged. LA is midly dilated 29-33ml/m2. The right atrium is moderately enlarged. Interatrial and interventricular septum intact. There is mild aortic valve sclerosis. There is no evidence of aortic regurgitation. There is no e vidence of aortic stenosis. The mitral valve leaflets are mildly thickened. Mild mitral regurgitation is present. Moderate to severe tricuspid regurgitation present. There is moderate to severe pulmonary hypertens ion. The right ventricular systolic pressure, as measured by Doppler, is 52.26mmHg. There is no pulmonic regurgitation present. The aortic root size is normal. The inferior vena cava is dilated with poor inspiratory collapse which is consistent with estimated r ight atrial pressure of 20 mmHg. There is no pericardial effusion. CONCLUSIONS -------- 1. There is mild concentric left ventricular hypertrophy. 2. Overall left ventricular systolic function is normal with, an EF between 55 - 60 %. 3. Increased Lap Grade II Diastolic Dysfunction. 4. The right ventricle is moderately enlarged. 5. LA is midly dilated 29-33ml/m2. 6. The right atrium is moderately enlarged. 7. There is mild aortic valve sclerosis. 8. Mild mitral regurgitation is present. 9. Moderate to severe tricuspid regurgitation present. 10. There is moderate to severe pulmonary hypertension. 11. The right ventricular systolic pressure, as measured by Doppler, is 52.26mmHg. 12. The inferior vena cava is dilated with poor inspiratory collapse which is consistent with estimat ed right atrial pressure of 20 mmHg. 13. There is no pericardial effusion. PROPELLER INSPECTOR: Yudi Nunez RDCS
--- NOTE | 2019-10-22 11:08 | CONS ---
CONSULTATION Mrs. Castorena is a 79-year-old female who is followed on a regular basis by Dr. Jacobs, who presented with symptoms of back discomfort. The patient presented to the hospital in August of 2016 and at that time had evidence of an acute inferior myocardial infarction, underwent stenting of the right coronary artery. She also was found to have ramus intermedius obstructive disease. She was brought back to the hospital in September and underwent cardiac catheterization by Dr. Jacobs and underwent stenting of the ramus intermedius. She has been doing reasonably well from the cardiac standpoint and unfortunately smokes on a regular basis. Her activity is stable. She has no history of heart failure. During that admission, her echocardiogram showed ejection fraction of 45% to 50%. The patient presented with back discomfort, severe and sharp. The discomfort was worse in certain position and because of that, she came into the emergency room. The patient did not feel the discomfort is similar to what she had in 2017. She denies any dizziness, palpitation. She denies any syncope. The patient has no history of significant peripheral edema and no malignant arrhythmia. Her coronary risk factors are remarkable for the smoking. She is nondiabetic, no documented history of hypertension. Her only medication at home were the Atarax, Celexa and aspirin. REVIEW OF SYSTEMS: RESPIRATORY SYSTEM: She had dyspnea on exertion. No history of recent wheezing or cough. GI SYSTEM: No recent GI bleeding, no peptic ulcer disease. SYSTEM: No dysuria or hematuria. NERVOUS SYSTEM: No history of stroke or seizure. PHYSICAL EXAMINATION: A 79-year-old female, alert, oriented, in no apparent distress. Blood pressure 122/70 with a heart in the 60s. HEAD: Normocephalic. EYES: Sclerae nonicteric. NECK: Good upstroke, no bruit, no jugular venous distention. LUNGS: Clear to auscultation. HEART: Regular rate and rhythm, S1, S2. No S3 with systolic murmur, ejection type, heard at the left sternal border, no diastolic murmur, no rub. ABDOMEN: Soft, nontender. EXTREMITIES: No edema. Back and shoulder discomfort, worse in certain position. LAB DATA: Revealed troponin of less than 0.012 for 3 samples. Cholesterol 96, LDL of 27, BUN and creatinine 21 and 0.74, hemoglobin 12.9. EKG revealed a sinus mechanism, rate of [address]-T wave changes. Chest x-ray shows no acute infiltrate. CT scan of the chest shows no evidence of pulmonary embolism. IMPRESSION: 1. Back discomfort, appeared to be musculoskeletal in etiology. Doubt cardiac etiology. No evidence for acute coronary syndrome. 2. History of coronary artery disease with multivessel stenting. 3. History of chronic tobacco use. RECOMMENDATION: I would recommend to proceed with a myocardial perfusion imaging as well as an echocardiogram to further assess her status and guide her treatment. Depending on those results of testing, further recommendation will be made. I have encouraged her to stop smoking. Thank you for this consult. Will follow with you. MMODL / IJN: [id number] /
[2019-10-22] MEDS ORDERED: NICOTINE 21MG/24HR PATCH TRANSDERM SCH (13:30)
[2019-10-22] MEDS ORDERED: hydrOXYzine HCL 10 MG TAB PO PRN ×2 (14:07)
--- NOTE | 2019-10-22 14:15 | NM ---
EXAMINATION TYPE: NM stress lexiscan cardiolite DATE OF EXAM: 10/22/2019 COMPARISON: NONE HISTORY: Chest pain TECHNIQUE: After the intravenous administration of 10.4 mCi Tc 99m Sestamibi - Cardiolite resting SP ECT images acquired 90 minutes post injection. The patient received 0.4mg Lexiscan, 26.3 mCi Tc 99m Sestamibi - Stress images obtained [address] injection . Artifact along the diaphragm causes some limitation on the evaluation. FINDINGS: No suspicious reversible perfusion defects are evident. A fixed defect is not evident. Some cardiac t hinning appears to be present. Gated wall motion is unremarkable. Ejection fraction of 53% is normal. IMPRESSION: 1. No suspicious stress-induced ischemic change. 2. Mild cardiac thinning.
--- NOTE | 2019-10-22 14:23 | EST ---
EXERCISE STRESS AGE: 79 SEX: F HT: 5'2" WT: 126 lbs. PROTOCOL: Lexiscan Cardiolite STAGE: DURATION OF EXERCISE: HEART RATE REST: 69 BLOOD PRESSURE REST: 116/71 MAXIMUM HEART RATE ACHIEVED: 104 MAXIMUM BLOOD PRESSURE: 125/70 85% MPHR: 100% MPHR: METS: INDICATIONS: CLINICAL INFORMATION: Baseline rhythm is sinus mechanism, rate 69, normal axis and intervals, normal echocardiogram. Baseline blood pressure 116/71 mmHg. Patient received injection of Lexiscan. Electrocardiograph monitoring revealed no evidence of diagnostic ischemic ST deviation. Cardiolite was injected per protocol. CONCLUSION: 1. Nondiagnostic electrocardiograph stress testing. 2. Nuclear images will be reported separately. MMODL / IJN: [id number] /
[2019-10-22 15:11] VITALS: BP 115/71; PULSE 97; RESP 18; TEMP 97.7
--- NOTE | 2019-10-22 17:56 | P.HPIM ---
History of Present Illness H&P Date: 10/22/19 Chief Complaint: Chest pain Saira Castorena, is a 79-year-old female patient of Dr. landin who presented to [facility] emergency room with a chief complaint of upper back pain radiating to the front of her chest, she was evaluated in emergency room, EKG revealed sinus tachycardia was heart rate of 104 otherwise normal EKG, cardiac enzymes were within normal limits, computed tomography scan angiogram of the chest did not reveal any of evidence of pulmonary embolism or any evidence of aortic dissection, she was admitted to telemetry floor for further evaluation and treatment, cardiology consultation was requested. Patient has a known history of gout, hyperlipidemia, previous history of coronary artery disease with history of angioplasty and stent placement , history of chronic back pain with previous history of neck surgery and low back surgery, her cardiac risk factors also include history of smoking. On review of systems patient is alert and oriented 3 in no apparent distress there is no fever or chills no headache or dizziness she is still having some upper back right sided pain radiating to the front of her chest, no nausea or vomiting no abdominal pain no diarrhea no blood in the stools no burning with urination no frequency or urgency no hematuria. Past Medical History Past Medical History: Chest Pain / Angina, Hyperlipidemia, Myocardial Infarction (LA), Osteoarthritis (OA) Additional Past Medical History / Comment(s): hx migraines bronchitis, hx gout , spinal stenosis. hx retroperitoneal fibrosis-diarrhea, "issue with gallbladder", hx anemia, Last Myocardial Infarction Date:: 09/07/16 History of Any Multi-Drug Resistant Organisms: C-DIFF, MRSA Date of last positivie culture/infection: "approx 10 years ago in [place]" (per pt) MDRO Source:: bowels Past Surgical History: Appendectomy, Back Surgery, Breast Surgery, Heart Catheterization With Stent, Hysterectomy, Orthopedic Surgery Additional Past Surgical History / Comment(s): sx for retropertoineal fibrosis x4, exploratory lap/lysis of adhesions, biopsy of uterine mass, eyelid lift, rt ureter reconstruction w/ stent that since has been removed- pt stated "they took a piece of bowel to use in the reconstruction sx for ureter", neck fusion, left breast lumpectomy, rt wrist surgery Past Anesthesia/Blood Transfusion Reactions: No Reported Reaction Additional Past Anesthesia/Blood Transfusion Reaction / Comment(s): blood transfusion in past-no reaction. Date of Last Stent Placement:: 10/17/2016 Past Psychological History: Anxiety, Depression Additional Psychological History / Comment(s): l Smoking Status: Current every day smoker Past Alcohol Use History: None Reported Additional Past Alcohol Use History / Comment(s): started smoking at age 21 (1 [phone]), smoked 1ppd, is down to 1/2 ppd Past Drug Use History: None Reported - Past Family History Mother Family Medical History: Diabetes Mellitus Father Family Medical History: COPD Additional Family Medical History / Comment(s): emphysema Medications and Allergies Home Medications Medication Instructions Recorded Confirmed Type Cholecalciferol [Vitamin D3 (25 1,000 unit PO DAILY 10/14/15 10/21/19 History Mcg = 1000 Iu)] Citalopram Hydrobromide [CeleXA] 20 mg PO HS 10/14/15 10/21/19 History Aspirin 81 mg PO DAILY 09/10/16 10/21/19 Rx Ascorbic Acid [Vitamin C] 1,000 mg PO DAILY 10/03/16 10/21/19 History Atorvastatin Calcium [Lipitor] 40 mg PO HS 10/21/19 10/21/19 History Magnesium 250 mg PO DAILY 10/21/19 10/21/19 History hydrOXYzine HCL [Atarax] 5 - 10 mg PO Q8H PRN 10/21/19 10/21/19 History hydrOXYzine HCL [Atarax] 10 - 20 mg PO HS PRN 10/21/19 10/21/19 History Baclofen 10 mg PO HS 10 Days #10 tab 10/22/19 Rx Nicotine 21Mg/24Hr Patch [Habitrol] 1 patch TRANSDERM DAILY patch 10/22/19 Rx Nitroglycerin Sl Tabs [Nitrostat] 0.4 mg SUBLINGUAL Q5M PRN tab 10/22/19 Rx Allergies Allergy/AdvReac Type Severity Reaction Status Date / Time Iodinated Contrast Media Allergy Itching Verified 10/21/19 18:26 naproxen Allergy Rash/Hives/Tongue Verified 10/21/19 18:26 Swelling naproxen sodium [From Aleve] Allergy Rash/Hives/Tongue Verified 10/21/19 18:26 and throat Swelling Physical Exam Vitals: Vital Signs Temp Pulse Pulse Resp BP BP Pulse Ox 10/22/19 08:48 97.4 F L 88 16 131/82 96 10/22/19 03:00 97.7 F 69 122/73 98 10/21/19 21:47 98.1 F 77 121/75 96 10/21/19 21:24 73 16 129/84 97 10/21/19 19:05 99 F 95 18 128/81 97 10/21/19 18:00 98 18 123/79 95 10/21/19 17:08 99.2 F 105 H 18 118/72 94 L Intake and Output 10/21/19 10/22/19 10/22/19 22:59 06:59 14:59 Intake Total 300 0 0 Output Total 0 Balance 300 0 0 Intake: Oral 300 0 0 Output: Urine 0 Other: # Voids 0 Weight 57.153 kg 57.15 kg In general patient is alert and oriented 3 in no apparent distress HEENT head normocephalic and atraumatic Neck is supple no JVD no goiter no lymphadenopathy Chest exam reveals a few scattered rhonchi no wheezing Cardiac exam reveals regular heart sounds S1 and S2 no gallops no murmurs Abdomen is soft nontender no organomegaly with normal bowel sounds Extremity exam reveals no edema no cyanosis or clubbing Neurological examination reveals no gross focal deficit Results CBC & Chem 7: 10/21/19 17:30 10/21/19 17:30 Labs: Abnormal Lab Results - Last 24 Hours (Table) 10/21/19 10/21/19 Range/Units 17:30 17:30 WBC 12.0 H (3.8-10.6) k/uL Neutrophils # 7.9 H (1.3-7.7) k/uL Monocytes # 1.3 H (0-1.0) k/uL Chloride 108 H (98-107) mmol/L BUN 21 H (7-17) mg/dL Glucose 113 H (74-99) mg/dL Thrombosis Risk Factor Assmnt - Choose All That Apply Each Risk Factor Represents 3 Points: Age 75 years or older Thrombosis Risk Factor Assessment Total Risk Factor Score: 3 Thrombosis Risk Factor Assessment Level: Moderate Risk Assessment and Plan Plan: 1. Upper back pain radiating to the chest, likely muscular Pain related to degenerative disc disease, cardiac origin will be ruled out during this admission 2. Underlying history of hyperlipidemia maintained on Lipitor continue 3. Underlying history of tobacco use patient counseled in length to quit sm oking, nicotine patches was started. 4. Underlying history of coronary artery disease with previous history of angioplasty and stent placement. At this time patient is admitted to medical floor cardiology consultation was requested Home medications reviewed and reordered Will follow closely
--- NOTE | 2019-10-22 18:00 | P.DS ---
Providers Date of admission: 10/21/19 20:42 Expected date of discharge: 10/22/19 Attending physician: Araceli Whitfield Consults: 10/21/19 20:42 Consult Physician Urgent Consulting Provider: Na Cloud Consult Reason/Comments: cp Do you want consulting provider notified?: Yes Primary care physician: Rosario Loza Hospital Course: Diagnosis on discharge: 1. Upper back pain radiating to the chest, likely muscular Pain related to degenerative disc disease, cardiac origin will be ruled out during this admission 2. Underlying history of hyperlipidemia maintained on Lipitor continue 3. Underlying history of tobacco use patient counseled in length to quit smoking, nicotine patches was started. 4. Underlying history of coronary artery disease with previous history of angioplasty and stent placement. 5. Underlying history of gout Hospital course: Saira Castorena, is a 79-year-old female patient of Dr. loza who presented to [facility] emergency room with a chief complaint of upper back pain radiating to the front of her chest, she was evaluated in emergency room, EKG revealed sinus tachycardia was heart rate of 104 otherwise normal EKG, cardiac enzymes were within normal limits, computed tomography scan angiogram of the chest did not reveal any of evidence of pulmonary embolism or any evidence of aortic dissection, she was admitted to telemetry floor for further evaluation and treatment, cardiology consultation was requested. Patient has a known history of gout, hyperlipidemia, previous history of coronary artery disease with history of angioplasty and stent placement , history of chronic back pain with previous history of neck surgery and low back surgery, her cardiac risk factors also include history of smoking. On review of systems patient is alert and oriented 3 in no apparent distress there is no fever or chills no headache or dizziness she is still having some upper back right sided pain radiating to the front of her chest, no nausea or vomiting no abdominal pain no diarrhea no blood in the stools no burning with urination no frequency or urgency no hematuria. On 10/22/2019 patient was seen and examined on the medical floor she is alert and oriented 3 in no apparent distress she is still having some mild upper back pain she underwent cardiac evaluation with stress test which failed to reveal any evidence of any suspicious stressed induced ischemic changes, patient was cleared by Dr. Caceres for discharge. She was counseled in length more than 5 minutes in regard to smoking cessation, she was given a prescription for NicoDerm patches. Follow-up with her primary care physician Dr. Loza, within 1 week, follow-up with carpenter prototype Dr. Jacobs Plan - Discharge Summary Discharge Rx Participant: No New Discharge Prescriptions: New Baclofen 10 mg PO HS 10 Days #10 tab Nicotine 21Mg/24Hr Patch [Habitrol] 1 patch TRANSDERM DAILY patch Nitroglycerin Sl Tabs [Nitrostat] 0.4 mg SUBLINGUAL Q5M PRN tab PRN Reason: Chest Pain Continue Cholecalciferol [Vitamin D3 (25 Mcg = 1000 Iu)] 1,000 unit PO DAILY Citalopram Hydrobromide [CeleXA] 20 mg PO HS Aspirin 81 mg PO DAILY Ascorbic Acid [Vitamin C] 1,000 mg PO DAILY hydrOXYzine HCL [Atarax] 10 - 20 mg PO HS PRN PRN Reason: sleep or anxiety hydrOXYzine HCL [Atarax] 5 - 10 mg PO Q8H PRN PRN Reason: Anxiety Magnesium 250 mg PO DAILY Atorvastatin Calcium [Lipitor] 40 mg PO HS Discharge Medication List Cholecalciferol [Vitamin D3 (25 Mcg = 1000 Iu)] 1,000 unit PO DAILY 10/14/15 [History] Citalopram Hydrobromide [CeleXA] 20 mg PO HS 10/14/15 [History] Aspirin 81 mg PO DAILY 09/10/16 [Rx] Ascorbic Acid [Vitamin C] 1,000 mg PO DAILY 10/03/16 [History] Atorvastatin Calcium [Lipitor] 40 mg PO HS 10/21/19 [History] Magnesium 250 mg PO DAILY 10/21/19 [History] hydrOXYzine HCL [Atarax] 5 - 10 mg PO Q8H PRN 10/21/19 [History] hydrOXYzine HCL [Atarax] 10 - 20 mg PO HS PRN 10/21/19 [History] Baclofen 10 mg PO HS 10 Days #10 tab 10/22/19 [Rx] Nicotine 21Mg/24Hr Patch [Habitrol] 1 patch TRANSDERM DAILY patch 10/22/19 [Rx] Nitroglycerin Sl Tabs [Nitrostat] 0.4 mg SUBLINGUAL Q5M PRN tab 10/22/19 [Rx] Follow up Appointment(s)/Referral(s): Rosario Loza MD [Primary Care Provider] - 1-2 days Patient Instructions/Handouts: Chest Pain (ED), How to Stop Smoking (DC)
[2019-10-22] MEDS ORDERED: CITALOPRAM HYDROBROMIDE 20 MG TAB PO SCH (21:00)
[2019-10-23] MEDS ORDERED: ASPIRIN 81 MG PO SCH (09:00)
[2019-10-23] MEDS ORDERED: MAGNESIUM OXIDE 400 MG TAB PO SCH (09:00)
[2019-10-23] MEDS ORDERED: CHOLECALCIFEROL 1,000 UNIT TAB PO SCH (09:00)
[2019-10-23] MEDS ORDERED: ASCORBIC ACID 500 MG TAB PO SCH (09:00)
== END 2019-10-22 18:00 | disposition home or self-care (01) ==
LOC: EC 17:07 → 3NCARDOBS 20:42
PROVIDERS: ADMIT Internal Medicine; ATTEND Internal Medicine
DX: M54.89 Other dorsalgia (principal); R07.9 Chest pain, unspecified; R00.0 Tachycardia, unspecified; M51.9 Unspecified thoracic, thoracolumbar and lumbosacral intervertebral disc disorder; E78.5 Hyperlipidemia, unspecified; F17.210 Nicotine dependence, cigarettes, uncomplicated; Z71.6 Tobacco abuse counseling; I25.10 Atherosclerotic heart disease of native coronary artery without angina pectoris; M10.9 Gout, unspecified; I25.2 Old myocardial infarction; M19.90 Unspecified osteoarthritis, unspecified site; M48.00 Spinal stenosis, site unspecified; F41.9 Anxiety disorder, unspecified; F32.9 Major depressive disorder, single episode, unspecified; G89.29 Other chronic pain; Z79.899 Other long term (current) drug therapy; Z79.82 Long term (current) use of aspirin; Z91.041 Radiographic dye allergy status; Z88.6 Allergy status to analgesic agent; Z86.69 Personal history of other diseases of the nervous system and sense organs; Z87.09 Personal history of other diseases of the respiratory system; Z87.19 Personal history of other diseases of the digestive system; Z86.2 Personal history of diseases of the blood and blood-forming organs and certain disorders involving the immune mechanism; Z86.14 Personal history of Methicillin resistant Staphylococcus aureus infection; Z90.49 Acquired absence of other specified parts of digestive tract; Z98.890 Other specified postprocedural states; Z95.5 Presence of coronary angioplasty implant and graft; Z90.710 Acquired absence of both cervix and uterus; Z87.42 Personal history of other diseases of the female genital tract; Z87.448 Personal history of other diseases of urinary system; Z98.1 Arthrodesis status; Z83.3 Family history of diabetes mellitus; Z82.5 Family history of asthma and other chronic lower respiratory diseases
CPT/HCPCS: 93005 ×2; 96374; 96375; 99285; 36415; 93017; 93306; 83880; 80061; 80053; 83690; 83735; 84484; 85025; 85610; 85730; 71046; 71275; 78452; G0378 ×2; A9500; S4990; J1200; J2930; J2785; Q9967

== ENCOUNTER 2020-10-28 13:26 | Emergency (ER) | payer MEDICARE ==
[2020-10-28 14:16] VITALS: RESP 18; TEMP 99.6
[2020-10-28] MEDS ORDERED: SODIUM CHLORIDE 0.9% 1,000 ML IV STA (15:25)
[2020-10-28] MEDS ORDERED: ACET/COD 300 MG/30 MG STARTER PACK 6 TAB BTL PO STA (15:26)
[2020-10-28 16:23] LABS: Basophils # (A) 0.1 k/uL (0-0.2); Basophils % (A) 0 %; Eosinophils # (A) 0.2 k/uL (0-0.7); Eosinophils % (A) 2 %; HCT 43.4 % (34.0-46.0); Lymphocytes # (A) 3.3 k/uL (1.0-4.8); Lymphocytes % (A) 29 %; MCH 32.6 pg (25.0-35.0); MCHC 34.4 g/dL (31.0-37.0); MCV 94.6 fL (80.0-100.0); Mean Platelet Volume 8.1; Monocytes # (A) 0.8 k/uL (0-1.0); Monocytes % (A) 7 %; Neutrophils # (A) 6.7 k/uL (1.3-7.7); Neutrophils % (A) 59 %; Platelet Count 305 k/uL (150-450); RBC 4.59 m/uL (3.80-5.40); RDW 12.6 % (11.5-15.5); WBC 11.2 k/uL (3.8-10.6)
[2020-10-28 16:36] LABS: Albumin 4.1 g/dL (3.5-5.0); Calcium 9.4 mg/dL (8.4-10.2); Potassium 4.4 mmol/L (3.5-5.1); Total Bilirubin 1.1 mg/dL (0.2-1.3)
--- NOTE | 2020-10-28 16:53 | ED ---
Back Pain HPI - General Chief Complaint: Back Pain/Injury Stated Complaint: Back pain Time Seen by Provider: 10/28/20 15:09 Source: patient, family Limitations: no limitations - History of Present Illness Initial Comments: 80-year-old female history of chronic back pain presenting to emergency Department with a chief complaint of back pain. Patient reports she has been his parents and pain for the last 5 days that begin in the lower lumbar region and is not radiating to her bilateral flank regions. Patient reports the pain is exacerbated with left and right rotation. Denies any dysuria, increased urgency or frequency. Denies any vaginal symptoms. Denies nausea vomiting diarrhea or constipation. Denies any chest pain or shortness of breath. Denies any fevers or chills. History of cervical and lumbar fusion. Multiple abdominal surgeries including exploratory laparotomy, hysterectomy, appendectomy. - Related Data Home Medications Medication Instructions Recorded Confirmed Cholecalciferol [Vitamin D3 (25 1,000 unit PO DAILY 10/14/15 10/28/20 Mcg = 1000 Iu)] Citalopram Hydrobromide [CeleXA] 20 mg PO HS 10/14/15 10/28/20 Atorvastatin Calcium [Lipitor] 40 mg PO HS 10/21/19 10/28/20 Magnesium 250 mg PO DAILY 10/21/19 10/28/20 Ascorbic Acid [Vitamin C] 500 mg PO DAILY 10/28/20 10/28/20 Cyanocobalamin (Vitamin B-12) 500 mcg PO DAILY 10/28/20 10/28/20 [Vitamin B-12] Previous Rx's Medication Instructions Recorded Aspirin 81 mg PO DAILY 09/10/16 Nitroglycerin Sl Tabs [Nitrostat] 0.4 mg SUBLINGUAL Q5M PRN tab 10/22/19 Cyclobenzaprine [Flexeril] 5 mg PO TID PRN #15 tablet 10/28/20 Allergies Allergy/AdvReac Type Severity Reaction Status Date / Time Iodinated Contrast Media Allergy Itching Verified 10/28/20 16:38 naproxen Allergy Rash/Hives/Tongue Verified 10/28/20 16:38 Swelling naproxen sodium [From Aleve] Allergy Rash/Hives/Tongue Verified 10/28/20 16:38 and throat Swelling Review of Systems ROS Statement: Those systems with pertinent positive or pertinent negative responses have been documented in the HPI. ROS Other: All systems not noted in ROS Statement are negative. Past Medical History Past Medical History: Chest Pain / Angina, Hyperlipidemia, Myocardial Infarction (MD), Osteoarthritis (OA) Additional Past Medical History / Comment(s): hx migraines bronchitis, hx gout , spinal stenosis. hx retroperitoneal fibrosis-diarrhea, "issue with gallbladder ", hx anemia, Last Myocardial Infarction Date:: 09/07/16 History of Any Multi-Drug Resistant Organisms: C-DIFF, MRSA Date of last positivie culture/infection: "approx 10 years ago in [place]" (per pt) MDRO Source:: bowels Past Surgical History: Appendectomy, Back Surgery, Breast Surgery, Heart Catheterization With Stent, Hysterectomy, Orthopedic Surgery Additional Past Surgical History / Comment(s): sx for retropertoineal fibrosis x4, exploratory lap/lysis of adhesions, biopsy of uterine mass, eyelid lift, rt ureter reconstruction w/ stent that since has been removed- pt stated "they took a piece of bowel to use in the reconstruction sx for ureter", neck fusion, left breast lumpectomy, rt wrist surgery Past Anesthesia/Blood Transfusion Reactions: No Reported Reaction Additional Past Anesthesia/Blood Transfusion Reaction / Comment(s): blood transfusion in past-no reaction. Date of Last Stent Placement:: 10/17/2016 Past Psychological History: Anxiety, Depression Smoking Status: Current every day smoker Past Alcohol Use History: Occasional Past Drug Use History: None Reported - Past Family History Mother Family Medical History: Diabetes Mellitus Father Family Medical History: COPD Additional Family Medical History / Comment(s): emphysema General Exam Limitations: no limitations General appearance: alert, in no apparent distress Head exam: Present: atraumatic, normocephalic, normal inspection Eye exam: Present: normal appearance Pupils: Present: normal accommodation ENT exam: Present: normal exam, normal oropharynx, mucous membranes moist Neck exam: Present: normal inspection, full ROM. Absent: tenderness Respiratory exam: Present: normal lung sounds bilaterally. Absent: respiratory distress, wheezes, rales Cardiovascular Exam: Present: regular rate, normal rhythm, normal heart sounds. Absent: systolic murmur GI/Abdominal exam: Present: soft. Absent: distended, tenderness, guarding, rebound Extremities exam: Present: normal inspection, full ROM, normal capillary refill. Absent: tenderness, pedal edema, joint swelling Back exam: Present: normal inspection, full ROM, tenderness, CVA tenderness (L) (Mild). Absent: CVA tenderness (R) Neurological exam: Present: alert, oriented X3 Psychiatric exam: Present: normal affect, normal mood Skin exam: Present: warm, dry, intact, normal color Course Vital Signs 10/28/20 14:14 Temperature 99.6 F Pulse Rate 95 Respiratory 18 Rate Blood Pressure 134/78 O2 Sat by Pulse 95 Oximetry Medical Decision Making - Medical Decision Making 80-year-old female history of chronic back pain presenting to emergency Department with a chief complaint of back pain. On physical examination, left CVA tenderness as well as left paraspinal tenderness. No mid spinal tenderness. Laboratory work shows no acute findings. UA shows small amount of white blood cells and trace amount of leukocyte esterase. She does not have any urinary symptoms. I will send urine culture. This appears to be acute on chronic back pain. I will give the patient Tylenol 3 starter pack. On reevaluation, she reports some improvement of symptoms. I will send him muscle relaxer. I will give her contact information to follow with an orthopedic customer solutions specialist. Return parameters were thoroughly discussed the patient is understanding and agreeable. Case discussed with physician. - Lab Data Result diagrams: 10/28/20 16:20 10/28/20 16:20 Lab Results 10/28/20 10/28/20 10/28/20 Range/Units 16:17 16:20 16:20 WBC 11.2 H (3.8-10.6) k/uL RBC 4.59 (3.80-5.40) m/uL Hgb 15.0 (11.4-16.0) gm/dL Hct 43.4 (34.0-46.0) % MCV 94.6 (80.0-100.0) fL MCH 32.6 (25.0-35.0) pg MCHC 34.4 (31.0-37.0) g/dL RDW 12.6 (11.5-15.5) % Plt Count 305 (150-450) k/uL MPV 8.1 Neutrophils % 59 % Lymphocytes % 29 % Monocytes % 7 % Eosinophils % 2 % Basophils % 0 % Neutrophils # 6.7 (1.3-7.7) k/uL Lymphocytes # 3.3 (1.0-4.8) k/uL Monocytes # 0.8 (0-1.0) k/uL Eosinophils # 0.2 (0-0.7) k/uL Basophils # 0.1 (0-0.2) k/uL Sodium 139 (137-145) mmol/L Potassium 4.4 (3.5-5.1) mmol/L Chloride 109 H (98-107) mmol/L Carbon Dioxide 24 (22-30) mmol/L Anion Gap 6 mmol/L BUN 18 H (7-17) mg/dL Creatinine 0.83 (0.52-1.04) mg/dL Est GFR (CKD-EPI)AfAm 78 (>60 ml/min/1.73 sqM) Est GFR (CKD-EPI)NonAf 68 (>60 ml/min/1.73 sqM) Glucose 95 (74-99) mg/dL Calcium 9.4 (8.4-10.2) mg/dL Total Bilirubin 1.1 (0.2-1.3) mg/dL AST 24 (14-36) U/L ALT 16 (4-34) U/L Alkaline Phosphatase 71 (38-126) U/L Total Protein 7.0 (6.3-8.2) g/dL Albumin 4.1 (3.5-5.0) g/dL Lipase 209 (23-300) U/L Urine Color Yellow Urine Appearance Cloudy H (Clear) Urine pH 6.0 (5.0-8.0) Ur Specific [place] 1.012 (1.001-1.035) Urine Protein Negative (Negative) Urine Glucose (UA) Negative (Negative) Urine Ketones Negative (Negative) Urine Blood Negative (Negative) Urine Nitrite Negative (Negative) Urine Bilirubin Negative (Negative) Urine Urobilinogen <2.0 (<2.0) mg/dL Ur Leukocyte Esterase Trace H (Negative) Urine RBC 3 (0-5) /hpf Urine WBC 21 H (0-5) /hpf Ur Squamous Epith Cells 1 (0-4) /hpf Urine Bacteria Occasional H (None) /hpf Urine Mucus Rare H (None) /hpf - EKG Data EKG Comments: Sinus rhythm Ventricular rate 81, IA 154, QRS 80, QTC forgers 64. Disposition Clinical Impression: Mechanical back pain Disposition: HOME SELF-CARE Condition: Stable Instructions (If sedation given, give patient instructions): Acute Low Back Pain (ED) Additional Instructions: Follow-up with flight control specialist. Take prescribed medication as directed. Return to emergency department if symptoms worsen. Prescriptions: Cyclobenzaprine [Flexeril] 5 mg PO TID PRN #15 tablet PRN Reason: Muscle Spasm Is patient prescribed a controlled substance at d/c from ED?: No Referrals: Rosario Loza MD [Primary Care Provider] - 1-2 days Drake Jeong DO [Doctor of Osteopathic Medicine] - 1-2 days Time of Disposition: 17:35
[2020-10-28 16:59] LABS: Appearance,Urine Cloudy (Clear); Bacteria,Urine Occasional /hpf; Bilirubin,Urine Negative (Negative); Blood,Urine Negative (Negative); Color,Urine Yellow; Glucose,Urine (UA) Negative (Negative); Ketones,Urine Negative (Negative); Leukocyte Esterase,Urine Trace (Negative); Mucus,Urine Rare /hpf; Nitrite,Urine Negative (Negative); Protein,Urine Negative (Negative); RBC,Urine 3 /hpf (0-5); Specific Gravity,Urine 1.012 (1.001-1.035); Squamous Epithelial Cell,Urine 1 /hpf (0-4); Urobilinogen,Urine <2.0 mg/dL (<2.0); WBC,Urine 21 /hpf (0-5)
[2020-10-28 18:09] VITALS: BP 147/87; PULSE 80
== END 2020-10-28 18:11 | disposition home or self-care (01) ==
LOC: EC 13:26
DX: M54.5 Low back pain (principal); E78.5 Hyperlipidemia, unspecified; I25.2 Old myocardial infarction; F32.9 Major depressive disorder, single episode, unspecified; F41.9 Anxiety disorder, unspecified; F17.200 Nicotine dependence, unspecified, uncomplicated; M19.90 Unspecified osteoarthritis, unspecified site; Z79.82 Long term (current) use of aspirin; Z88.6 Allergy status to analgesic agent; Z90.49 Acquired absence of other specified parts of digestive tract; Z90.710 Acquired absence of both cervix and uterus
CPT/HCPCS: 36415; 80053; 81001; 83690; 85025; 87086; 93005; 96360; 99284